=== PATIENT | male | born 1955 | race Caucasian/White ===

== ENCOUNTER 2019-05-08 07:35 | Day surgery (SDC) | payer OTHER ==
[~2019-05-08] VITALS: Ht 180.3 cm; Wt 74.8 kg
[~2019-05-08 07:35] MED LIST: ALEV220T22 PO; CELE1CAP4 OR; NS 1,000 ML IV ONE; No Historical Meds; ONDA-1 OR; PERC5TAB8 OR
[2019-05-08] MEDS ORDERED: PROPOFOL 200 MG/20 ML VIAL As Ordered ONE ×2 (09:03→10:02)
[2019-05-08] MEDS ORDERED: LIDOCAINE 2% INJ 100 MG/5 ML SDV (FOR ANES.) As Ordered ONE (09:04)
--- NOTE | 2019-05-08 10:06 | ROOR ---
Patient Name: Papa Henry Procedure Date: 05/08/2019 9:49 AM Date of : 1955 Age: 63 Room: [facility] Gender: Male Note Status: Finalized Procedure: Colonoscopy Indications: Screening for colorectal malignant neoplasm Providers: Roger Hall Jr, MD Referring MD: Adolfo Brunson MD Requesting Provider: Medicines: Propofol per Anesthesia Complications: No immediate complications. Procedure: Pre-Anesthesia Assessment: - Prior to the procedure, a History and Physical was performed, and patient medications and allergies were reviewed. The patient is competent. The risks and benefits of the procedure and the sedation options and risks were discussed with the patient. All questions were answered and informed consent was obtained. Patient identification and proposed procedure were verified by the physician and the nurse in the pre-procedure area and in the procedure room. Mental Status Examination: alert and oriented. Airway Examination: normal oropharyngeal airway and neck mobility. Respiratory Examination: clear to auscultation. CV Examination: normal. ASA Grade Assessment: II - A patient with mild systemic disease. After reviewing the risks and benefits, the patient was deemed in satisfactory condition to undergo the procedure. The anesthesia plan was to use moderate sedation / analgesia (conscious sedation). Immediately prior to administration of medications, the patient was re-assessed for adequacy to receive sedatives. The heart rate, respiratory rate, oxygen saturations, blood pressure, adequacy of pulmonary ventilation, and response to care were monitored throughout the procedure. The physical status of the patient was re-assessed after the procedure. The Colonoscope was introduced through the anus and advanced to the cecum, identified by appendiceal orifice and ileocecal valve. The colonoscopy was performed without difficulty. The patient tolerated the procedure well. The quality of the bowel preparation was adequate. Findings: The rectum, recto-sigmoid colon, sigmoid colon, descending colon, transverse colon, cecum, appendiceal orifice and ileocecal valve appeared normal. There was a small lipoma, in the ascending colon. Impression: - The rectum, recto-sigmoid colon, sigmoid colon, descending colon, transverse colon, cecum, appendiceal orifice and ileocecal valve are normal. - Small lipoma in the ascending colon. - No specimens collected. Recommendation: - Discharge patient to home (ambulatory). - Repeat colonoscopy in 10 years for screening purposes. Roger Hall MD Roger Hall Jr, MD 05/08/2019 10:06:26 AM Electronically signed by Roger Hall Jr, MD Number of Addenda: 0 Note Initiated On: 05/08/2019 9:49 AM Estimated Blood Loss: Estimated blood loss: none.
[2019-05-08 10:30] VITALS: BP 118/75
== END 2019-05-08 11:01 | disposition home or self-care (01) ==
LOC: M OPP 07:35
PROVIDERS: ATTEND Surgery
DX: Z12.11 Encounter for screening for malignant neoplasm of colon (principal); D17.5 Benign lipomatous neoplasm of intra-abdominal organs; M19.90 Unspecified osteoarthritis, unspecified site; Z80.52 Family history of malignant neoplasm of bladder

== ENCOUNTER 2020-10-15 08:00 | Inpatient (IN) | payer MEDICARE, OTHER ==
[~2020-10-15] VITALS: Ht 180.3 cm; Wt 98.2 kg
[~2020-10-15 08:00] MED LIST changes: -NS 1,000 ML IV ONE
[2020-10-15] MEDS ORDERED: NS 1,000 ML IV ONE (08:45)
[2020-10-15] MEDS ORDERED: KETOROLAC 30 MG/ML 1ML VIAL IV ONE (08:45)
--- OUTSIDE RECORDS SUMMARY | 2020-10-15 08:47 | CCD ---
Author Author [facility] Organization [facility] Address Unknown Phone Unavailable Care Team Providers Care Last Ironer Name Role Phone Chance Brunson MD Unavailable Unavailable Chance Brunson MD Unavailable Unavailable Chance Brunson MD Unavailable Unavailable Chance Brunson MD Unavailable Unavailable Chance Brunson MD Unavailable Unavailable Chance Brunson MD Unavailable Unavailable Chance Brunson MD Unavailable Unavailable Chance Brunson MD Unavailable Unavailable Chance Brunson MD Unavailable Unavailable Chance Brunson MD Unavailable Unavailable Chance Brunson MD Unavailable Unavailable Chance Brunson MD Unavailable Unavailable Chance Brunson MD Unavailable Unavailable Chance Brunson MD Unavailable Unavailable Chance Brunson MD Unavailable Unavailable Chance Brunson MD Unavailable Unavailable Chance Brunson MD Unavailable Unavailable Chance Brunson MD Unavailable Unavailable Chance Brunson MD Unavailable Unavailable Chance Brunson MD Unavailable Unavailable Chance Brunson MD Unavailable Unavailable Chance Brunson MD Unavailable Unavailable Chance Brunson MD Unavailable Unavailable Chance Brunson MD Unavailable Unavailable Chance Brunson MD Unavailable Unavailable Chance Brunson MD Unavailable Unavailable Chance Brunson MD Unavailable Unavailable Chance Brunson MD Unavailable Unavailable Chance Brunson MD Unavailable Unavailable Chance Brunson MD Unavailable Unavailable Chance Brunson MD Unavailable Unavailable Chance Brunson MD Unavailable Unavailable Chance Brunson MD Unavailable Unavailable Chance Brunson MD Unavailable Unavailable Chance Brunson MD Unavailable Unavailable Chance Brunson MD Unavailable Unavailable Chance Brunson MD Unavailable Unavailable Chance Brunson MD Unavailable Unavailable Chance Brunson MD Unavailable Unavailable Chance Brunson MD Unavailable Unavailable White, F Adolfo MD Unavailable Unavailable White, F Adolfo MD Unavailable Unavailable White, F Adolfo MD Unavailable Unavailable White, F Adolfo MD Unavailable Unavailable White, F Adolfo MD Unavailable Unavailable White, F Adolfo MD Unavailable Unavailable White, F Adolfo MD Unavailable Unavailable White, F Adolfo MD Unavailable Unavailable White, F Adolfo MD Unavailable Unavailable White, F Adolfo MD Unavailable Unavailable White, F Adolfo MD Unavailable Unavailable White, F Adolfo MD Unavailable Unavailable White, F Adolfo MD Unavailable Unavailable White, F Adolfo MD Unavailable Unavailable White, F Adolfo MD Unavailable Unavailable White, F Adolfo MD Unavailable Unavailable White, F Adolfo MD Unavailable Unavailable White, F Adolfo MD Unavailable Unavailable White, F Adolfo MD Unavailable Unavailable White, F Adolfo MD Unavailable Unavailable White, F Adolfo MD Unavailable Unavailable White, F Adolfo MD Unavailable Unavailable White, F Adolfo MD Unavailable Unavailable White, F Adolfo MD Unavailable Unavailable White, F Adolfo MD Unavailable Unavailable White, F Adolfo MD Unavailable Unavailable White, F Adolfo MD Unavailable Unavailable White, F Adolfo MD Unavailable Unavailable White, F Adolfo MD Unavailable Unavailable White, F Adolfo MD Unavailable Unavailable White, F Adolfo MD Unavailable Unavailable White, F Adolfo MD Unavailable Unavailable White, F Adolfo MD Unavailable Unavailable White, F Adolfo MD Unavailable Unavailable Re-disclosure Warning The records that you are about to access may contain information from federally-assisted alcohol or drug abuse programs. If such information is present, then the following federally mandated warning applies: This information has been disclosed to you from records protected by federal confidentiality rules (42 CFR part 2). The federal rules prohibit you from making any further disclosure of this information unless further disclosure is expressly permitted by the written consent of the person to whom it pertains or as otherwise permitted by 42 CFR part 2. A general authorization for the release of medical or other information is NOT sufficient for this purpose. The Federal rules restrict any use of the information to criminally investigate or prosecute any alcohol or drug abuse patient.The records that you are about to access may contain highly sensitive health information, the redisclosure of which is protected by Article 27-F of the [facility] Public Health law. If you continue you may have access to information: Regarding HIV / AIDS; Provided by facilities licensed or operated by the [facility] Office of Mental Health; or Provided by the [facility] Office for People With Developmental Disabilities. If such information is present, then the following [facility] mandated warning applies: This information has been disclosed to you from confidential records which are protected by state law. State law prohibits you from making any further disclosure of this information without the specific written consent of the person to whom it pertains, or as otherwise permitted by law. Any unauthorized further disclosure in violation of state law may result in a fine or mcfp sentence or both. A general authorization for the release of medical or other information is NOT sufficient authorization for further disc losure. Encounters Encounter Providers Location Date Indications Data Source(s ) Outpatient Attender: Adolfo Roa 03/25 08:30:00 AM EDT [facility] ([facility] ) Insurance Providers Payer name Policy type / Coverage type Policy ID Covered democrat ID Covered democrat's relationship to chan Policy Chan Plan Information MEDICARE COMPLETE [id number] SP [id number] [facility] [id number] SP [id number] [facility] [id number] SP [id number] [place] PPO 302/[id number] [facility] Healthcare F [id number] SELF [id number] [facility] Healthcare F [id number] SPOUSE [id number] [facility] Health Maintenance Organization (HMO) [id number] Family Dependent [id number] [facility] PPO [id number] Patient [id number] P PPO [id number] Patient [id number] P HMO [id number] Patient [id number] 401 O BLUE [id number] Patient [id number] [facility] [id number] Patient [id number] Results ID Date Data Source [id number] 03/25/2020 08:14:00 AM EDT [facility] ([facility]) Name Value Range Interpretation Code Description Data Cat rce(s) Supporting Document(s) Prostate specific Ag [Mass/volume] in Serum or Plasma 0.91 ng/mL [facility] ([facility]) This assay was performed on the Siemens Dimension EXL using the B- Galactosidase/CPRG methodology and should not be compared interchangeably with other methods. The PSA should not be used alone as a screening test for the presence or absence of malignant disease. ID Date Data Source [id number] 03/25/2020 08:14:00 AM EDT [facility] Name Value Range Interpretation Code Description Data Cat rce(s) Supporting Document(s) Thyrotropin [Units/volume] in Serum or Plasma by Detec tion limit <= 0.05 mIU/L 1.33 uIU/mL 0.36-3.74 [facility] ID Date Data Source [id number] 03/25/2020 08:14:00 AM EDT [facility]) Name Value Range Interpretation Code Description Data Cat rce(s) Supporting Document(s) Cholesterol [Mass/volume] in Serum or Plasma 195 mg/dL 131-200 [facility] ([facility]) Triglyceride [Mass/volume] in Serum or Plasma 79 mg/dL 30-150 [facility] ([facility]) Cholesterol in HDL [Mass/volume] in Serum or Plasma 52 mg/dL 35-60 [facility] ([facility]) Cholesterol in LDL [Mass/volume] in Serum or Plasma by calcu lation 127 CALC 50-159 [facility] ([facility]) ID Date Data Source [id number] 03/25/2020 08:14:00 AM EDT [facility] Name Value Range Interpretation Code Description Data Cat rce(s) Supporting Document(s) Urea nitrogen [Mass/volume] in Serum or Plasma 14 mg/dL 7-18 [facility] ([facility]) Creatinine 1.1 mg/dL 0.6-1.3 [facility]) Glucose [Mass/volume] in Serum or Plasma 97 mg/dL 74-99 [facility] ([facility]) 100-125 mg/dL PRE-DIABETES/FASTING >126 mg/dL DIABETES/FASTING Sodium [Moles/volume] in Serum or Plasma 141 meq/L 136-145 [facility] ([facility]) Potassium [Moles/volume] in Serum or Plasma 4.6 meq/L 3.5-5.1 [facility] ([facility]) Chloride [Moles/volume] in Serum or Plasma 104 meq/L 98-107 [facility] ([facility]) Calcium [Mass/volume] in Serum or Plasma 8.8 mg/dL 8.5-10.1 [facility] ([facility]) Carbon dioxide, total [Moles/volume] in Serum or Plasma 28 meq/L 21 -32 [facility] ([facility]) Alkaline phosphatase isoenzyme [Units/volume] in Serum or Pl asma 61 mg/dL 46-116 [facility] ([facility]) Total Bilirubin 0.9 mg/dL 0.2-1.0 [facility] ([facility]) Alanine aminotransferase [Enzymatic activity/volume] in Seru m or Plasma 34 U/L 12-78 [facility] ([facility]) Aspartate aminotransferase [Enzymatic activity/volume] in Serum or Plasma 21 U/L 15-37 [facility] ([facility] ) Proteinase 3 Ab [Units/volume] in Serum 7.1 g/dL 6.4-8.2 [facility] ([facility]) A/G Ratio 1.63 CALC 1.00-1.90 [facility] ([facility]) Albumin [Mass/volume] in Serum or Plasma 4.4 g/dL 3.4-5.0 [facility] ([facility]) Glomerular filtration rate/1.73 sq M pre dicted among blacks [Volume Rate/Area] in Serum or Plasma by Creatinine-based formula (MDRD) Laboratory test result [facility] <content>CHRONIC KIDNEY DISEASE STAGING PER NKF</content>
<content></content>
<content>STAGE I & II GFR >= 60 NORMAL TO MILDLY DECREASED</content>
<content>STAGE III GFR 30-59 MODERATELY DECREASED</content>
<content>STAGE IV GFR 15-29 SEVERELY DECREASED</content>
<content>STAGE V GFR <15 VERY LITTLE GFR LEFT</content>
<content>ESRD GFR <15 ON STATE PATROL OFFICER</content>
<content></content> Glomerular filtration rate/1.73 sq M pre dicted among non-blacks [Volume Rate/Area] in Serum or Plasma by Creatinine-based formula (MDRD) Laboratory test result [facility] ([facility] ) Procedure Vital Signs ID Date Data Source UNK Name Value Range Interpretation Code Description Data Source(s) Body mass index (BMI) [Ratio] 23.5 kg/m2 23.5 k g/m2 [facility] ([facility]) Body weight 166.00 [lb_av] 166.00 [lb_av] STEPHAN Colung[facility] ([facility]) Body height 70.5 [in_i] 70.5 [in_i] [facility] ([facility]) 5'10.50" Heart rate 78 /min 78 /min [facility] ([facility]) Diastolic blood pressure 82 mm[Hg] 82 mm[Hg] [facility] ([facility]) Systolic blood pressure 130 mm[Hg] 130 mm[Hg] M MITCHELL ([facility])
[2020-10-15 09:05] LABS: BASO % 0.3 % (0.0-1.0); EOS % 0.1 % (0.0-3.0); HEMATOCRIT 48.5 % (42.0-52.0); HEMOGLOBIN 15.9 g/dl (13.5-17.5); LYMPH # 0.7 10^3/uL (1.5-5.0); LYMPH % 4.5 % (24.0-44.0); MEAN CORPUSCULAR HEMOGLOBIN 30.3 pg (27.0-33.0); MEAN CORPUSCULAR HGB CONC 32.8 g/dl (32.0-36.5); MEAN CORPUSCULAR VOLUME 92.6 fl (80.0-96.0); MONO # 0.9 10^3/uL (0.0-0.8); MONO % 6.1 % (0.0-5.0); NEUTROPHILS # 13.2 10^3/uL (1.5-8.5); NEUTROPHILS % 88.5 % (36.0-66.0); PLATELET COUNT, AUTOMATED 255 10^3/uL (150-450); RED BLOOD COUNT 5.24 10^6/uL (4.30-6.10); WHITE BLOOD COUNT 14.9 10^3/uL (4.0-10.0)
[2020-10-15] MEDS ORDERED: ISOVUE-370 76% 100ML VIAL As Ordered ONE (09:22)
[2020-10-15 09:40] LABS: BILIRUBIN,DIRECT 0.3 MG/DL (0.0-0.2); BILIRUBIN,TOTAL 1.5 MG/DL (0.2-1.0); TOTAL PROTEIN 7.1 GM/DL (6.4-8.2)
--- NOTE | 2020-10-15 09:43 | REP ---
INDICATION: constipation, n/v COMPARISON: None. TECHNIQUE: Upright view of the chest with supine and upright views of the abdomen and pelvis. FINDINGS: Frontal upright view of the chest demonstrates no acute cardiopulmonary process or free air below the diaphragm to suspect pneumoperitoneum. Supine and upright views of the abdomen and pelvis demonstrate nonspecific bowel gas pattern without obstruction or perforation. No organomegaly. No abnormal calcifications. Skeletal structures normal for age. IMPRESSION: Nonspecific bowel gas pattern. <Electronically signed by Yogi Victoria > 10/15/20 0963
--- NOTE | 2020-10-15 09:50 | REP ---
INDICATION: umbilical pain into RLQ, constipation, n/v. COMPARISON: None TECHNIQUE: Axial contrast-enhanced images from the lung bases to the pubic symphysis using 100 cc Isovue 370 intravenous contrast material. Coronal and sagittal reformations obtained.. This CT examination was performed using the following dose reduction techniques: Automated exposure control, adjustment of mA and/or kv according to the patient's size, and the use of iterative reconstruction technique. FINDINGS: Liver, spleen, pancreas, gallbladder, bilateral adrenal glands and kidneys are normal. Dilated fluid-filled loops of small bowel are identified with collapsed small bowel noted in the right lower quadrant. Findings are compatible with early small-bowel obstruction. Point of transition is not definitively identified. No free air or free fluid to suggest perforation. Large bowel is grossly unremarkable. Pelvis demonstrates heterogeneous lobulated enlarged prostate gland measuring greater than 6.5 cm diameter. No significant ascites. No free air. No intraperitoneal or retroperitoneal adenopathy. Abdominal aorta and vasculature appear normal. Musculoskeletal structures are intact and without acute osseous abnormality. IMPRESSION: Dilated fluid-filled loops of small bowel with collapsed loops in the right lower quadrant compatible with small bowel obstruction. Point of transition is not definitively identified. No free air or significant free fluid to suggest perforation. No drainable collection or abscess. Enlarged lobulated heterogeneous prostate gland with mass effect on the base of the bladder. <Electronically signed by Yogi Victoria > 10/15/20 0914
[2020-10-15] MEDS ORDERED: PIPERACILLIN/TAZOBACTAM SOD 3.375 GM in D5W MINI-BAG PLUS 50 ML IV ONE (10:15)
--- OUTSIDE RECORDS SUMMARY | 2020-10-15 11:08 | CCD ---
Author Author [facility] Organization [facility] Address Unknown Phone Unavailable Care Team Providers Care Accounts Payable Payroll Coordinator Name Role Phone Chance Brunson MD Unavailable [...] is protected by Article 27-F of the [facility] Public Health law. If you continue you may have access to information: Regarding HIV / AIDS; Provided by facilities licensed or operated by the [facility] Office of Mental Health; or Provided by the [facility] Office for People With Developmental Disabilities. If such information is present, then the following [facility] mandated warning applies: This information has [...] law may result in a fine or half-way sentence or both. A general authorization for the release of medical or other information is NOT sufficient authorization for further disc losure. Encounters Encounter Providers Location Date Indications Data Source(s ) Outpatient Attender: Adolfo Roa 03/25 08:30:00 AM EDT [facility] ([facility] ) Insurance Providers Payer name Policy type / Coverage type Policy ID Covered constitution party ID Covered constitution party's relationship to chan Policy Chan Plan Information MEDICARE COMPLETE [id number] SP [id number] MEDICARE COMPLETE [id number] SP [id number] [facility] [id number] SP [id number] [facility] [id number] SP [id number] BCBS [place] PPO 302/[id number] [facility] Healthcare F [id number] SELF [id number] [facility] Healthcare F [id number] SPOUSE 8 [id number] [facility] Health Maintenance Organization (HMO) [id number] Family Dependent [id number] P PPO [id number] Patient [id number] MVP PPO [id number] Patient [id number] P HMO [id number] Patient [id number] 401 HMO BLUE [id number] Patient [id number] [facility] [id number] Patient [id number] Results ID Date Data Source [id number] 03/25/2020 08:14:00 AM EDT [facility] ([facility]) Name Value Range Interpretation Code Description Data Cat rce(s) Supporting Document(s) Prostate specific Ag [Mass/volume] in Serum or Plasma 0.91 ng/mL [facility] ([facility]) This assay was performed on the Siemens [employer] EXL using the B- Galactosidase/CPRG methodology and should not be compared interchangeably with other methods. The PSA should not be used alone as a screening test for the presence or absence of malignant disease. ID Date Data Source [id number] 03/25/2020 08:14:00 AM EDT [facility] Name Value Range Interpretation Code Description Data Cat rce(s) Supporting Document(s) Thyrotropin [Units/volume] in Serum or Plasma by Detec tion limit <= 0.05 mIU/L 1.33 uIU/mL 0.36-3.74 [facility] ID Date Data Source [id number] 03/25/2020 08:14:00 AM EDT [facility] Name Value Range Interpretation Code Description Data Cat rce(s) Supporting Document(s) Cholesterol [Mass/volume] in Serum or Plasma 195 mg/dL 131-200 [facility] ([facility]) Triglyceride [Mass/volume] in Serum or Plasma 79 mg/dL 30-150 [facility] ([facility]) Cholesterol in HDL [Mass/volume] in Serum or Plasma 52 mg/dL 35-60 [facility] ([facility]) Cholesterol in LDL [Mass/volume] in Serum or Plasma by calcu lation 127 CALC 50-159 [facility] ID Date Data Source [id number] 03/25/2020 08:14:00 AM EDT [facility] Name Value Range Interpretation Code Description Data Cat rce(s) Supporting Document(s) Urea nitrogen [Mass/volume] in Serum or Plasma 14 mg/dL 7-18 [facility] ([facility]) Creatinine 1.1 mg/dL 0.6-1.3 [facility] Glucose [Mass/volume] in Serum or Plasma 97 mg/dL 74-99 [facility] ([facility]) 100-125 mg/dL PRE-DIABETES/FASTING >126 mg/dL DIABETES/FASTING Sodium [Moles/volume] in Serum or Plasma 141 meq/L 136-145 [facility] ([facility]) Potassium [Moles/volume] in Serum or Plasma 4.6 meq/L 3.5-5.1 [facility] ([facility]) Chloride [Moles/volume] in Serum or Plasma 104 meq/L 98-107 [facility] ([facility]) Calcium [Mass/volume] in Serum or Plasma 8.8 mg/dL 8.5-10.1 [facility] ([facility]) Carbon dioxide, total [Moles/volume] in Serum or Plasma 28 meq/L 21 -32 [facility] ([facility]) Alkaline phosphatase isoenzyme [Units/volume] in Serum or Pl asma 61 mg/dL 46-116 [facility] ([facility]) Total Bilirubin 0.9 mg/dL 0.2-1.0 [facility] ([facility]) Alanine aminotransferase [Enzymatic activity/volume] in Seru m or Plasma 34 U/L 12-78 [facility] ([facility]) Aspartate aminotransferase [Enzymatic activity/volume] in Serum or Plasma 21 U/L 15-37 [facility] ([facility] ) Proteinase 3 Ab [Units/volume] in Serum 7.1 g/dL 6.4-8.2 [facility] ([facility]) A/G Ratio 1.63 CALC 1.00-1.90 [facility]) Albumin [Mass/volume] in Serum or Plasma 4.4 g/dL 3.4-5.0 [facility] ([facility]) Glomerular filtration rate/1.73 sq M pre dicted among blacks [Volume Rate/Area] in Serum or Plasma by Creatinine-based formula (MDRD) Laboratory [facility] <content>CHRONIC KIDNEY DISEASE STAGING PER NKF</content>
<content></content>
<content>STAGE I & II GFR >= 60 NORMAL TO MILDLY DECREASED</content>
<content>STAGE III GFR 30-59 MODERATELY DECREASED</content>
<content>STAGE IV GFR 15-29 SEVERELY DECREASED</content>
<content>STAGE V GFR <15 VERY LITTLE GFR LEFT</content>
<content>ESRD GFR <15 ON COOLING TOWER TECHNICIAN</content>
<content></content> Glomerular filtration rate/1.73 sq M pre dicted among non-blacks [Volume Rate/Area] in Serum or Plasma by Creatinine-based formula (MDRD) Laboratory test result [facility] ([facility] ) Procedure Vital Signs ID Date Data Source UNK Name Value Range Interpretation Code Description Data Source(s) Body mass index (BMI) [Ratio] 23.5 kg/m2 23.5 k g/m2 [facility] ([facility]) Body weight 166.00 [lb_av] 166.00 [lb_av] STEPHAN Colunga ([facility]) Body height 70.5 [in_i] 70.5 [in_i] [facility] ([facility]) 5'10.50" Heart rate 78 /min 78 /min [facility] ([facility]) Diastolic blood pressure 82 mm[Hg] 82 mm[Hg] [facility] ([facility]) Systolic blood pressure 130 mm[Hg] 130 mm[Hg] M MITCHELL ([facility])
[2020-10-15] MEDS: NS 1,000 ML IV SCH ×2 (11:30→20:49)
--- NOTE | 2020-10-15 13:36 | HPEPDOC ---
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 Denies chest pain, shortness of breath, diarrhea, or sick contacts. PAST MEDICAL HISTORY: Denies PAST SURGICAL HISTORY: #abdominal surgery 2017 - perforated bowel secondary to trauma - surgery at [facility] in [place] #appendagitis? ALLERGIES: Please see below. REVIEW OF SYSTEMS: Negative except as per HPI. HOME MEDICATIONS: Please see below. PHYSICAL EXAMINATION: VITAL SIGNS: See below General; NAD, lying comfortably in bed HEENT: NC/AT, EOMI, Lungs: CTA B/L Heart: +S1S2, RRR Abd: soft, hyperactive BS, tender Ext: no edema LABORATORY DATA: See below. MICROBIOLOGY: Please see below. A/P: 65 yo male for 2 day history of worsening abdominal pain with nausea and non-bilious non-bloody vomiting, found to have small bowel obstruction. #SBO - follow as per surgery - NG tube, sips, IV antibiotics, IV fluids - consultation pending #possible EtOH abuse? - monitor for withdrawal signs/symptoms #DVT prophylaxis - mechanical Vital Signs Vital Signs Date Time Temp Pulse Resp B/P (MAP) Pulse Ox O2 Delivery O2 Flow Rate FiO2 10/15/20 12:24 98.0 82 20 125/79 (94) 97 Room Air Laboratory Data Labs 24H Laboratory Tests 2 10/15/20 08:38: Immature Granulocyte % (Auto) 0.5, Neutrophils (%) (Auto) 88.5H, Lymphocytes (%) (Auto) 4.5L, Monocytes (%) (Auto) 6.1H, Eosinophils (%) (Auto) 0.1, Basophils (%) (Auto) 0.3, Neutrophils # (Auto) 13.2H, Lymphocytes # (Auto) 0.7L, Monocytes # (Auto) 0.9H, Eosinophils # (Auto) 0.0, Basophils # (Auto) 0.0, Nucleated Red Blood Cells % (auto) 0.0, Urine Color EDER, Urine Appearance CLEAR, Urine pH 5.0, Urine Specific [place] 1.031, Urine Protein 1+H, Urine Glucose (UA) NEGATIVE, Urine Ketones 1+H, Urine Blood NEGATIVE, Urine Nitrite NEGATIVE, Urine Bilirubin NEGATIVE, Urine Urobilinogen 4.0H, Urine Leukocyte Esterase NEGATIVE, Urine WBC (Auto) 1, Urine RBC (Auto) 2, Urine Hyaline Casts (Auto) 0, Urine Bacteria (Auto) NEGATIVE, Urine Squamous Epithelial Cells 0, Urine Mucus (Auto) SMALL, Urine Sperm (Auto) , POC Glucose (Misc Panel) 118H, POC Sodium (Misc Panel) 138, POC Potassium (Misc Panel) 4.6, POC Chloride (Misc Panel) 102, POC Total CO2 (Misc Panel) 25.0, POC Blood Urea Nitrogen (Misc Panel 24, POC Ionized Calcium (Misc Panel) 4.9, POC Creatinine (Misc Panel) 0.9, POC Hematocrit (Misc Panel) 47.0, Total Bilirubin 1.5H, Direct Bilirubin 0.3H, Aspartate Amino Transf (AST/SGOT) 12, Alanine Aminotransferase (ALT/SGPT) 27, Alkaline Phosphatase 69, Total Protein 7.1, Albumin 4.0, Albumin/Globulin Ratio 1.3, Lipase 47L 10/15/20 08:43: POC Lactate (Misc Panel) 1.12 10/15/20 09:50: Coronavirus (COVID-19)(PCR) NEGATIVE CBC/BMP Laboratory Tests 10/15/20 08:38 Home Medications No Active Prescriptions or Reported Meds Allergies Coded Allergies: No Known Allergies (Unverified , 04/30/19) A-FIB/CHADSVASC A-FIB History Current/History of A-Fib/PAF?: No VAMSI VITAL MD Oct 15, 2020 13:36
[2020-10-15 15:43] VITALS: BP 137/95
[2020-10-15] MEDS: PIPERACILLIN/TAZOBACTAM SOD 3.375 GM in D5W MINI-BAG PLUS 50 ML IV SCH ×2 (16:57→21:18)
[2020-10-15] MEDS ORDERED: MORPHINE 2 MG/ML 1ML VIAL (J2270) IV PRN ×2 (17:15→21:15)
[2020-10-15] MEDS ORDERED: CHLORASEPTIC SPRAY MT PRN (17:15)
--- NOTE | 2020-10-15 21:09 | CR ---
CONSULTATION DATE: 10/15/2020 REASON FOR CONSULTATION: Abdominal pain. HISTORY OF PRESENT ILLNESS: Patient is a 65-year-old male, who presented to the hospital with a couple day history of increasing abdominal pain. Pain was mostly around his belly button going to his right lower quadrant. He did have a little bit of nausea and vomiting yesterday, nothing significant since. Last bowel movement was last evening. Due to persistent pains, he had his pick him up out in [place] this morning and bring him up here to be evaluated. He has had a perforated bowel surgery four years ago, status post trauma. No problems with bowel obstruction since then. PAST MEDICAL HISTORY: Negative. PAST SURGICAL HISTORY: Abdominal exploratory surgery with bowel resection in 2017. ALLERGIES: None. HOME MEDICATIONS: Please see medical record. REVIEW OF SYSTEMS: Pertinent positive and negatives as stated in HPI. PHYSICAL EXAMINATION: GENERAL: Alert and oriented x3, in no acute distress. VITALS: Temperature 98.2, pulse 80, respirations 18, blood pressure 137/95, pulse oximetry 99% on room air. HEENT: Pupils equally round and reactive to light and accommodation. HEART: S1, S2, regular rate and rhythm. LUNGS: Clear to auscultation bilaterally. ABDOMEN: Soft, slightly distended, slight tenderness suprapubically in the right lower quadrant only. No rebound or guarding or rigidity. EXTREMITIES: No cyanosis, clubbing or edema. LABORATORY DATA: White count 14.9, hemoglobin 15.9, platelets 255,000. Bilirubin was slightly elevated at 1.5. COVID negative. Lactic acid 1.12. Sodium 138, potassium 4.6. IMAGING STUDIES: CT abdomen and pelvis showed dilated loops of small bowel with collapsed loops in the right lower quadrant, compatible with small bowel obstruction, point of transition is not identified. No signs of any free air or free fluid to suggest a perforation. ASSESSMENT AND PLAN: Patient is a 65-year-old male with abdominal pain, distention on CT, suspicious for partial versus complete small bowel obstruction. This is likely secondary to adhesions from his prior surgery. Recommendation at this time is bowel rest, I.V. fluids, antibiotics and frequent ambulation. Will give him 72-hours of medical management. If there is no improvement by Sunday, then I will take him to the Operating Room for exploratory surgery. BOBO
[2020-10-15] MEDS ORDERED: ONDANSETRON 4MG/2ML VIAL IV PRN (21:15)
[2020-10-15 22:00] VITALS: BP 116/86
[2020-10-16] MEDS: PIPERACILLIN/TAZOBACTAM SOD 3.375 GM in D5W MINI-BAG PLUS 50 ML IV SCH ×4 (04:25→21:54)
[2020-10-16 06:00] VITALS: BP 129/73
[2020-10-16 06:50] LABS: HEMATOCRIT 39.1 % (42.0-52.0); MEAN CORPUSCULAR HEMOGLOBIN 29.5 pg (27.0-33.0); MEAN CORPUSCULAR HGB CONC 31.2 g/dl (32.0-36.5); MEAN CORPUSCULAR VOLUME 94.4 fl (80.0-96.0); PLATELET COUNT, AUTOMATED 177 10^3/uL (150-450); RED BLOOD COUNT 4.14 10^6/uL (4.30-6.10); WHITE BLOOD COUNT 9.7 10^3/uL (4.0-10.0)
[2020-10-16 06:57] LABS: HEMOGLOBIN 12.2 g/dl (13.5-17.5)
[2020-10-16 07:08] LABS: ALBUMIN 2.9 GM/DL (3.2-5.2); ALT/SGPT 17 U/L (12-78); BILIRUBIN,TOTAL 1.3 MG/DL (0.2-1.0); BLOOD UREA NITROGEN 22 MG/DL (7-18); CALCIUM LEVEL 8.1 MG/DL (8.8-10.2); CARBON DIOXIDE LEVEL 23 MEQ/L (21-32); CHLORIDE LEVEL 110 MEQ/L (98-107); CREATININE FOR GFR 0.87 MG/DL (0.70-1.30); GLOMERULAR FILTRATION RATE > 60.0 (>49); GLUCOSE, FASTING 82 MG/DL (70-100); POTASSIUM SERUM 3.9 MEQ/L (3.5-5.1); SODIUM LEVEL 141 MEQ/L (136-145); TOTAL PROTEIN 5.5 GM/DL (6.4-8.2)
[2020-10-16] MEDS: NS 1,000 ML IV SCH ×2 (07:50→17:41)
--- NOTE | 2020-10-16 09:41 | IPNPDOC ---
Text Note Date of Service The patient was seen on 10/16/20. NOTE No acute changes overnight. He is passing flatus, but no BM yet. Abd pain is g one and his NG output is minimal but still brown. VSSAF NAD abd - soft, nt, nd labs - below A) 65y/o male with sbo vs. ileus that is resolving P) clamp NG clear liquid diet ambulate if tolerating clamped NG by 5pm we will d/c it. Patrick Gonsalez DO VS,Fishbone, I+O VS, Fishbone, I+O Laboratory Tests 10/16/20 05:44 Vital Signs Date Time Temp Pulse Resp B/P (MAP) Pulse Ox O2 Delivery O2 Flow Rate FiO2 10/16/20 06:00 98.3 83 18 129/73 (91) 97 Room Air I&O- Last 24 Hours up to 6 AM 10/16/20 06:00 Intake Total 2850 ml Output Total 625 ml Balance 2225 ml ESPERANZA GONSALEZ DO Oct 16, 2020 09:41
--- NOTE | 2020-10-16 11:28 | IPNPDOC ---
Text Note Date of Service The patient was seen on 10/16/20. NOTE Subjective: Patient seen and examined at bedside. No acute overnight events reported. No new medical complaints this morning. He states he is feeling better. Objective: VITAL SIGNS: See below General; NAD, lying comfortably in bed HEENT: NC/AT, EOMI, Lungs: CTA B/L Heart: +S1S2, RRR Abd: soft, hyperactive BS, NT Ext: no edema A/P: 65 yo male for 2 day history of worsening abdominal pain with nausea and non-bilious non-bloody vomiting, found to have small bowel obstruction. #SBO - follow as per surgery - clamp NG tube, ambulate, clear liquid diet #possible EtOH abuse? - monitor for withdrawal signs/symptoms #DVT prophylaxis - mechanical VS,Fishbone, I+O VS, Fishbone, I+O Laboratory Tests 10/16/20 05:44 Vital Signs Date Time Temp Pulse Resp B/P (MAP) Pulse Ox O2 Delivery O2 Flow Rate FiO2 10/16/20 06:00 98.3 83 18 129/73 (91) 97 Room Air I&O- Last 24 Hours up to 6 AM 10/16/20 06:00 Intake Total 2850 ml Output Total 625 ml Balance 2225 ml VAMSI VITAL MD Oct 16, 2020 11:28
[2020-10-16 14:00] VITALS: BP 127/76
[2020-10-16 22:00] VITALS: BP 125/76
[2020-10-17] MEDS: NS 1,000 ML IV SCH (03:34)
[2020-10-17] MEDS: PIPERACILLIN/TAZOBACTAM SOD 3.375 GM in D5W MINI-BAG PLUS 50 ML IV SCH ×2 (03:34→10:49)
[2020-10-17 06:00] VITALS: BP 117/72
--- NOTE | 2020-10-17 08:15 | IPNPDOC ---
Text Note Date of Service The patient was seen on 10/17/20. NOTE No acute changes overnight. He is passing flatus, and multiple BMs yesterday. NG is out and he tolerated clears. VSSAF NAD abd - soft, nt, nd labs - below A) 65y/o male with sbo vs. ileus that resolved P) reg diet d/c home f/u in office PRN Patrick Gonsalez DO VS,Fishbone, I+O VS, Fishbone, I+O Vital Signs Date Time Temp Pulse Resp B/P (MAP) Pulse Ox O2 Delivery O2 Flow Rate FiO2 10/16/20 22:00 97.9 74 16 125/76 (92) 98 Room Air I&O- Last 24 Hours up to 6 AM 10/17/20 06:00 Intake Total 3670 ml Output Total 575 ml Balance 3095 ml ESPERANZA GONSALEZ DO Oct 17, 2020 08:15
[2020-10-17 08:21] LABS: BASO % 0.5 % (0.0-1.0); EOS # 0.1 10^3/uL (0.0-0.5); HEMATOCRIT 33.2 % (42.0-52.0); HEMOGLOBIN 10.6 g/dl (13.5-17.5); LYMPH # 0.7 10^3/uL (1.5-5.0); LYMPH % 13.4 % (24.0-44.0); MEAN CORPUSCULAR HEMOGLOBIN 30.4 pg (27.0-33.0); MEAN CORPUSCULAR HGB CONC 31.9 g/dl (32.0-36.5); MEAN CORPUSCULAR VOLUME 95.1 fl (80.0-96.0); MONO # 0.7 10^3/uL (0.0-0.8); MONO % 12.3 % (0.0-5.0); NEUTROPHILS # 3.9 10^3/uL (1.5-8.5); NEUTROPHILS % 71.3 % (36.0-66.0); PLATELET COUNT, AUTOMATED 150 10^3/uL (150-450); RED BLOOD COUNT 3.49 10^6/uL (4.30-6.10); WHITE BLOOD COUNT 5.5 10^3/uL (4.0-10.0)
[2020-10-17 09:09] LABS: ALBUMIN 2.7 GM/DL (3.2-5.2); ALT/SGPT 16 U/L (12-78); BILIRUBIN,TOTAL 0.6 MG/DL (0.2-1.0); BLOOD UREA NITROGEN 11 MG/DL (7-18); CALCIUM LEVEL 7.9 MG/DL (8.8-10.2); CARBON DIOXIDE LEVEL 25 MEQ/L (21-32); CHLORIDE LEVEL 110 MEQ/L (98-107); CREATININE FOR GFR 0.87 MG/DL (0.70-1.30); GLOMERULAR FILTRATION RATE > 60.0 (>49); GLUCOSE, FASTING 113 MG/DL (70-100); POTASSIUM SERUM 4.1 MEQ/L (3.5-5.1); SODIUM LEVEL 142 MEQ/L (136-145); TOTAL PROTEIN 5.2 GM/DL (6.4-8.2)
--- NOTE | 2020-10-17 13:32 | DS.PDOC ---
Discharge Summary General Date of Admission Oct 15, 2020 at 10:46 Date of Discharge 10/17/20 Discharge Summary PROCEDURES PERFORMED DURING STAY: [None]. ADMITTING DIAGNOSES: #partial SBO DISCHARGE DIAGNOSES: #partial SBO COMPLICATIONS/CHIEF COMPLAINT: Small Bowel Obstruction. 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 Denies chest pain, shortness of breath, diarrhea, or sick contacts. Patient admitted for further evaluation and treatment seen in consultation by surgery. NG tube was placed while in the ED, and made NPO. He was advanced to clear liquid diet, and his pain continued to improve. His diet was advanced from clears. He tolerated his diet well. He had a bowel movement while inpatient. He was seen in follow-up by surgery with recommendations for outpatient follow-up. DISCHARGE MEDICATIONS: Please see below. ALLERGIES: Please see below. PHYSICAL EXAMINATION ON DISCHARGE: VITAL SIGNS: See below General; NAD, lying comfortably in bed HEENT: NC/AT, EOMI, Lungs: CTA B/L Heart: +S1S2, RRR Abd: soft, hyperactive BS, tender Ext: no edema LABORATORY DATA: See below. LABORATORY DATA: Please see below. ACTIVITY: [As tolerated]. DISPOSITION: 01 Home, Self-Care. DISCHARGE INSTRUCTIONS: 1. Follow up with PCP in 3-5 days DISCHARGE CONDITION: [Stable]. TIME SPENT ON DISCHARGE: 35 minutes. Vital Signs/I&Os Vital Signs Date Time Temp Pulse Resp B/P (MAP) Pulse Ox O2 Delivery O2 Flow Rate FiO2 10/17/20 06:00 97.4 60 16 117/72 (87) 98 Room Air I&O- Last 24 Hours up to 6 AM 10/17/20 06:00 Intake Total 3830 ml Output Total 575 ml Balance 3255 ml Laboratory Data Labs 24H Laboratory Tests 2 10/17/20 07:59: Immature Granulocyte % (Auto) 0.5, Neutrophils (%) (Auto) 71.3H, Lymphocytes (%) (Auto) 13.4L, Monocytes (%) (Auto) 12.3H, Eosinophils (%) (Auto) 2.0, Basophils (%) (Auto) 0.5, Neutrophils # (Auto) 3.9, Lymphocytes # (Auto) 0.7L, Monocytes # (Auto) 0.7, Eosinophils # (Auto) 0.1, Basophils # (Auto) 0.0, Nucleated Red Blood Cells % (auto) 0.0, Anion Gap 7L, Glomerular Filtration Rate > 60.0, Calcium Level 7.9L, Total Bilirubin 0.6#, Aspartate Amino Transf (AST/SGOT) 7, Alanine Aminotransferase (ALT/SGPT) 16, Alkaline Phosphatase 48, Total Protein 5.2L, Albumin 2.7L, Albumin/Globulin Ratio 1.1 CBC/BMP Laboratory Tests 10/17/20 07:59 Microbiology Microbiology 10/15/20 Blood Culture - Preliminary, Resulted No growth after 24 hours . All specim... 10/15/20 Blood Culture - Preliminary, Resulted No growth after 24 hours . All specim... Discharge Medications No Active Prescriptions or Reported Meds Allergies Coded Allergies: No Known Allergies (Unverified , 04/30/19) VAMSI VITAL MD Oct 17, 2020 13:32
== END 2020-10-17 12:07 | disposition home or self-care (01) | DRG 390 ==
LOC: M ED 08:00 → M ED INP 10:46 → M MSPAV 15:44
PROVIDERS: ADMIT Internal Medicine; ATTEND Internal Medicine
DX: K56.50 Intestinal adhesions [bands], unspecified as to partial versus complete obstruction (principal)

== ENCOUNTER 2021-03-27 11:01 | Inpatient (IN) | payer MEDICARE ==
[~2021-03-27] VITALS: Ht 180.3 cm; Wt 79.8 kg
[2021-03-27 11:54] LABS: BASO % 0.2 % (0.0-1.0); HEMOGLOBIN 15.5 g/dl (13.5-17.5); MEAN CORPUSCULAR HEMOGLOBIN 30.6 pg (27.0-33.0); MEAN CORPUSCULAR VOLUME 92.9 fl (80.0-96.0); MONO # 0.9 10^3/uL (0.0-0.8); MONO % 4.6 % (2.0-8.0); NEUTROPHILS # 17.6 10^3/uL (1.5-8.5); NEUTROPHILS % 89.8 % (36.0-66.0); PLATELET COUNT, AUTOMATED 250 10^3/uL (150-450); RED BLOOD COUNT 5.06 10^6/uL (4.30-6.10); WHITE BLOOD COUNT 19.6 10^3/uL (4.0-10.0)
[2021-03-27] MEDS ORDERED: ONDANSETRON 4MG/2ML VIAL IV ONE ×2 (12:00→13:45)
[2021-03-27] MEDS ORDERED: MORPHINE 4 MG/ML 1ML VIAL/SYRINGE (J2270) IV ONE (12:00)
[2021-03-27] MEDS ORDERED: ISOVUE-370 76% 100ML VIAL As Ordered ONE (12:03)
[2021-03-27 12:22] LABS: BILIRUBIN,DIRECT 0.2 MG/DL (0.0-0.2); BILIRUBIN,TOTAL 0.6 MG/DL (0.2-1.0); TOTAL PROTEIN 7.1 GM/DL (6.4-8.2)
--- NOTE | 2021-03-27 13:02 | REP ---
INDICATION: SBO. COMPARISON: 10/15/2020 TECHNIQUE: 100 mL Isovue 370 with scanning through the abdomen and pelvis and both coronal and sagittal reconstructions provided. FINDINGS: CT abdomen: Lung bases are clear. The heart is not enlarged and there is no pericardial thickening or effusion. No hiatal hernia seen. Liver is not enlarged and appears homogeneous. There is a small amount of ascites adjacent to the liver. No biliary dilatation or focal hepatic mass gallbladder shows no calcified stone or mass. There is no gross splenomegaly. Trace amount of ascites adjacent to the inferior aspect of the spleen. Pancreas shows no calcification. The pancreatic duct up to a 3 mm in the body of the pancreas but no pancreatic mass, peripancreatic inflammatory change fluid collection. No adenopathy. Adrenal glands are normal. Stomach with retained fluid. Proximal small bowel loops dilated in the left upper quadrant. The most proximal loops of jejunum do show wall thickening. Some ascites in the leaves of the mesentery and extending in the peritoneal gutters to the pelvis. Small bowel loops dilated in the left upper quadrant with transition of caliber in the right side of the abdomen at the level of the iliac crest on images 94-98. Small bowel loops distal to this are fluid-filled but not dilated but with wall thickening and enhancement. Colon has abundant stool in the right side moderate on the transverse and scattered in the left colon. No definite sign of colitis or diverticulitis, mass or stricture. The aorta is without aneurysm or dissection. Kidneys show symmetric function in enhancement without struck gutierrez, mass or stone. There is no hydroureter or ureteral stone. No periaortic, mesenteric or retroperitoneal pathologic sized lymphadenopathy. Lung window review of all CT slices shows no perforation or free air. Appendix is seen and unremarkable. Bone windows show degenerative disc changes greatest at L4-5 with vacuum phenomenon and disc space narrowing, minimal changes at other levels. No compression deformity or destructive lesion. The visualized ribs were intact. CT pelvis: Bony sacrum, pelvis and hips show minimal degenerative changes without destructive lesions or fractures. The distal left colon, sigmoid and rectum with no acute finding. Moderate ascites into the deep pelvis. Small bowel loops in the pelvis are fluid-filled but not abnormally dilated. Some of the small bowel loops in the right abdomen past the transition zone show thickening and enhancement of the mendez. Bladder is only partially filled without mass, stone or wall thickening enlarged prostate indents the bladder base. There is no ventral hernia. Some ascites is seen extending into the left inguinal canal. IMPRESSION: 1. Dilated proximal to mid small bowel with transition zone appearing in the right mid abdomen at the level of the iliac crest, see images 94-98. This represents mild small-bowel obstruction. Beyond this, the small bowel loops have slightly thickened mendez and enhancement of those mendez. Those loops are all fluid-filled but not dilated to the ileocecal valve. The proximal loops show dilatation without air-fluid levels. The most proximal of loops of jejunum do show wall thickening. Mild to moderate ascites in the upper and lower abdomen pelvis respectively. 2. No definite evidence for colitis, diverticulitis stricture or colonic mass. 3. Liver, spleen, gallbladder, pancreas, adrenal glands, kidneys and bladder unremarkable. No hiatal hernia. Otherwise negative. <Electronically signed by Maurisio Crawford > 03/27/21 [id number]
[2021-03-27] MEDS ORDERED: NS 1,000 ML IV SCH (13:05)
[2021-03-27] MEDS ORDERED: GLUCAGON INJ 1MG VIAL SC PRN (13:25)
[2021-03-27] MEDS ORDERED: DEXTROSE 50% 50 ML SYRINGE IV PRN (13:25)
[2021-03-27] MEDS ORDERED: GLUCOSE 4GM CHEW TABLET PO PRN (13:25)
--- NOTE | 2021-03-27 13:58 | HPEPDOC ---
[facility] Medical History & Physical Date of Admission Mar 27, 2021 Date of Service: Mar 27, 2021 Attending Physician: LUIS CHISHOLM MD MPH History and Physical CHIEF COMPLAINT: SBO HISTORY OF PRESENT ILLNESS: Mr. Henry is a 65 year old male with PMHx significant only for abdominal trauma several years ago requiring ex-lap with no reported resection and a small bowel obstruction in who presents to the ED with one day of progressive abdominal discomfort and large amount of emesis this morning. Patient states he was in his normal state of health up until yesterday afternoon when he developed a slight stomach ache. He was able to tolerate a diet last night, however this morning when he woke up, he had an episode of emesis where he brought up all of his food from the night before. He otherwise has no medical complaints. ED Course: NGT placed to LIWS with small amount of bile return. PAST MEDICAL HISTORY: SBO Abdominal trauma with exlap PAST SURGICAL HISTORY: T&A as child Exlap orthopedic surgeries SOCIAL HISTORY: Marital status: and lives at home with Employment: construction Tobacco use: denies ETOH: beer most weekends FAMILY HISTORY: non contributory ALLERGIES: Please see below. REVIEW OF SYSTEMS: Other than noted above a 12 point ROS was not positive. HOME MEDICATIONS: Please see below. PHYSICAL EXAMINATION: VITAL SIGNS: reviewed GENERAL APPEARANCE: Uncomfortable thin older male with NGT in place, no acute distress. HEENT: Atraumatic, normocephalic. Eyes are anicteric. Mucous membranes are pink and moist. NGT in left nare. CARDIOVASCULAR: NSR, regular rhythm, no noted murmurs LUNGS: CTAB ABDOMEN: Hypoactive bowel sounds, soft, nondistended. Slight discomfort throughout upper abdomen with no rebound or guarding. EXTREMITIES: No lower extremity edema, no apparent rashes/petechiae. NEUROLOGICAL: Awake, speech is clear, AOx3 LABORATORY DATA: See below. IMAGING: CT Abd/Pelvis: IMPRESSION: 1. Dilated proximal to mid small bowel with transition zone appearing in the right mid abdomen at the level of the iliac crest, see images 94-98. This represents mild small-bowel obstruction. Beyond this, the small bowel loops have slightly thickened mendez and enhancement of those mendez. Those loops are all fluid-filled but not dilated to the ileocecal valve. The proximal loops show dilatation without air- fluid levels. The most proximal of loops of jejunum do show wall thickening. Mild to moderate ascites in the upper and lower abdomen pelvis respectively. 2. No definite evidence for colitis, diverticulitis stricture or colonic mass. 3. Liver, spleen, gallbladder, pancreas, adrenal glands, kidneys and bladder unremarkable. No hiatal hernia. Otherwise negative. MICROBIOLOGY: Please see below. ASSESSMENT: Mr. Henry is a 65 year old male with pmhx of abdominal trauma s/p exlap and SBO last in presenting with clinical and radiological findings c/w SBO. Gen Surg has been consulted. . PLAN: # SBO: Will continue NGT to LIWS with NPO status. Encouraging patient to ambulate to improve gastric motility. General Surgery is consulted, however no acute indication for surgical intervention at this time. Meds: Toradol for pain Zofran PRN Nausea 150cc/hr D5NS while NPO NPO with sips/chips okay NGT to LIWS Encourage ambulation Appreciate Gen Surg consult # Leukocytosis: This is a new issue, however there is no current evidence of infection as lung exam is unremarkable, UA is negative, and there is no finding on CT A/P to support an abdominal source for infection. Will continue to monitor, however likely demargination in the setting of SBO. Dispo: Med/Surg Obs Diet: NPO, sips/chips DVT Prophy: Lovenox Consults: Gen surg Discharge: Pending resolution of SBO, currently anticipate <2 MN. Vital Signs Vital Signs Date Time Temp Pulse Resp B/P (MAP) Pulse Ox O2 Delivery O2 Flow Rate FiO2 03/27/21 12:03 18 Room Air 03/27/21 11:30 03/27/21 11:02 98.9 86 97 Laboratory Data Labs 24H Laboratory Tests 2 03/27/21 11:30: Immature Granulocyte % (Auto) 0.4, Neutrophils (%) (Auto) 89.8H, Lymphocytes (%) (Auto) 5.0L, Monocytes (%) (Auto) 4.6, Eosinophils (%) (Auto) 0.0, Basophils (%) (Auto) 0.2, Neutrophils # (Auto) 17.6H, Lymphocytes # (Auto) 1.0L, Monocytes # (Auto) 0.9H, Eosinophils # (Auto) 0.0, Basophils # (Auto) 0.0, Nucleated Red Blood Cells % (auto) 0.0, Total Bilirubin 0.6, Direct Bilirubin 0.2, Aspartate Amino Transf (AST/SGOT) 18, Alanine Aminotransferase (ALT/SGPT) 37, Alkaline Phosphatase 61, Total Protein 7.1, Albumin 4.0, Albumin/Globulin Ratio 1.3, Lipase 44L 03/27/21 11:43: POC Glucose (Misc Panel) 155H, POC Sodium (Misc Panel) 141, POC Potassium (Misc Panel) 4.2, POC Chloride (Misc Panel) 102, POC Total CO2 (Misc Panel) 27.0, POC Blood Urea Nitrogen (Misc Panel 16, POC Ionized Calcium (Misc Panel) 4.7, POC Creatinine (Misc Panel) 1.0, POC Hematocrit (Misc Panel) 47.0 03/27/21 11:55: Urine Color YELLOW, Urine Appearance CLEAR, Urine pH 6.0, Urine Specific [place] 1.027, Urine Protein 1+H, Urine Glucose (UA) NEGATIVE, Urine Ketones NEGATIVE, Urine Blood NEGATIVE, Urine Nitrite NEGATIVE, Urine Bilirubin NEGATIVE, Urine Urobilinogen 0.2, Urine Leukocyte Esterase NEGATIVE, Urine WBC (Auto) 1, Urine RBC (Auto) 2, Urine Hyaline Casts (Auto) 1, Urine Bacteria (Auto) NEGATIVE, Urine Squamous Epithelial Cells 0, Urine Mucus (Auto) SMALL, Urine Sperm (Auto) CBC/BMP Laboratory Tests 03/27/21 11:30 Home Medications No Active Prescriptions or Reported Meds Allergies Coded Allergies: No Known Allergies (Unverified , 04/30/19) A-FIB/CHADSVASC A-FIB History Current/History of A-Fib/PAF?: No Current PO Anticoag Therapy: No Age/Risk Factor Scoring CHADSVASC: CHADSVASC Response (Comments) Value Age Risk Factor Age 65-74 years old 1 Gender Risk Factor Male 0 Hx of CHF No 0 Hx of HTN No 0 Hx of Stroke/TIA/or VTE No 0 Hx of Diabetes No 0 Hx of Vascular Disease No 0 Total 1 Treatment Treatment ordered: Other Other anticoagulant ordered: LUIS Pltat MD MPH Mar 27, 2021 13:58
[2021-03-27] MEDS ORDERED: HOME MED LIST COMPLETE! XX SCH (14:00)
[2021-03-27 14:30] LABS: RSV AMPLIFICATION NEGATIVE (NEGATIVE)
[2021-03-27] MEDS: D5W/0.9% SODIUM CHLORIDE 1,000 ML IV SCH ×2 (14:48→22:21)
[2021-03-27] MEDS: HumaLOG INSULIN (NovoLOG) PER UNIT SC SCH ×2 (15:03→17:36)
[2021-03-27 15:50] VITALS: BP 164/98
[2021-03-27] MEDS: KETOROLAC 30 MG/ML 1ML VIAL IV PRN ×2 (16:06→22:19)
[2021-03-27] MEDS: ONDANSETRON 4MG/2ML VIAL IV PRN ×2 (16:06→22:19)
[2021-03-27] MEDS: MORPHINE 2 MG/ML 1ML VIAL (J2270) IV PRN (19:38)
[2021-03-27 22:00] VITALS: BP 151/87
--- NOTE | 2021-03-27 22:14 | ECGEPIP ---
[facility] - ED Test Date: 2021-03-27 Pat Name: APRIL RODRIGUES Department: Room: [place] [address] Gender: Male Radiosonde Specialist: VIDAL : 1955 Requested By: Abbe Kolb Order Number: [id number] Reading MD: Sue Lopez Measurements Intervals [place] Rate: 66 P: 40 KS: 168 QRS: 11 QRSD: 100 T: 16 QT: 400 QTc: 419 Interpretive Statements Normal sinus rhythm No prior Electronically Signed on 03-27-2021 22:14:26 EDT by Sue Lopez
[2021-03-28] MEDS: MORPHINE 2 MG/ML 1ML VIAL (J2270) IV PRN ×3 (00:14→22:41)
[2021-03-28] MEDS: HumaLOG INSULIN (NovoLOG) PER UNIT SC SCH ×4 (00:14→17:42)
--- NOTE | 2021-03-28 01:55 | REPVR ---
PROCEDURE INFORMATION: Exam: XR Chest Exam date and time: 03/28/2021 12:57 AM Age: 65 years old Clinical indication: Device placement; Ng tube; Additional info: Confirm ngt placement TECHNIQUE: Imaging protocol: XR of the chest. Views: 1 view. COMPARISON: CR Abdomen,Flat Upright,PA CHEST 10/15/2020 8:56 AM FINDINGS: Tubes, catheters and devices: Interval placement of an NG tube to the gastric body. Lungs: There is decreased inflation of the lungs. Pleural spaces: Unremarkable. No pleural effusion. No pneumothorax. Heart/Mediastinum: The heart and mediastinum are unchanged. Bones/joints: Unremarkable. IMPRESSION: 1. Interval placement of an NG tube to the gastric body since 10/15/2020. 2. Otherwise stable poor inspiratory chest. Electronically signed by: Don Torres On 03/28/2021 01:54:26 AM
[2021-03-28 06:00] VITALS: BP 140/81
[2021-03-28] MEDS: D5W/0.9% SODIUM CHLORIDE 1,000 ML IV SCH ×3 (06:02→22:39)
[2021-03-28] MEDS: KETOROLAC 30 MG/ML 1ML VIAL IV PRN ×2 (06:03→12:14)
[2021-03-28 06:26] LABS: HEMATOCRIT 48.2 % (42.0-52.0); HEMOGLOBIN 15.9 g/dl (13.5-17.5); MEAN CORPUSCULAR HEMOGLOBIN 30.6 pg (27.0-33.0); MEAN CORPUSCULAR VOLUME 92.9 fl (80.0-96.0); PLATELET COUNT, AUTOMATED 259 10^3/uL (150-450); RED BLOOD COUNT 5.19 10^6/uL (4.30-6.10); WHITE BLOOD COUNT 7.2 10^3/uL (4.0-10.0)
[2021-03-28 06:52] LABS: BLOOD UREA NITROGEN 22 MG/DL (7-18); CALCIUM LEVEL 8.4 MG/DL (8.8-10.2); CARBON DIOXIDE LEVEL 24 MEQ/L (21-32); CHLORIDE LEVEL 110 MEQ/L (98-107); CREATININE FOR GFR 0.91 MG/DL (0.70-1.30); GLOMERULAR FILTRATION RATE > 60.0 (>49); GLUCOSE, FASTING 139 MG/DL (70-100); MAGNESIUM LEVEL 2.3 MG/DL (1.8-2.4); POTASSIUM SERUM 4.6 MEQ/L (3.5-5.1); SODIUM LEVEL 142 MEQ/L (136-145)
--- NOTE | 2021-03-28 07:43 | IPNPDOC ---
Text Note Date of Service The patient was seen on 03/28/21. NOTE SUBJECTIVE: Patient has had additional output from NGT as well as large amount of emesis last night after NGT was retracted slightly. It was repositioned and had good return of stomach contents. Today pain and nausea are resolved. Patient denies flatus. He is interested in ambulating. PHYSICAL EXAMINATION: VITAL SIGNS: reviewed GENERAL APPEARANCE: Thin older male sitting up in bed with NGT in place, no acute distress. HEENT: Atraumatic, normocephalic. Eyes are anicteric. Mucous membranes are pink and moist. NGT in left nare to LIWS with return of bilious fluid. CARDIOVASCULAR: NSR, regular rhythm, no noted murmurs LUNGS: CTAB ABDOMEN: Hypoactive bowel sounds, soft, nondistended. No rebound tenderness or guarding. EXTREMITIES: No lower extremity edema, no apparent rashes/petechiae. NEUROLOGICAL: Awake, speech is clear, AOx3 LABORATORY DATA: See below. IMAGING: No recent MICROBIOLOGY: Please see below. ASSESSMENT: Mr. Henry is a 65 year old male with pmhx of abdominal trauma s/p exlap and SBO last in presenting with clinical and radiological findings c/w SBO. Gen Surg has been consulted. . PLAN: # SBO: Will continue NGT to LIWS with NPO status. Encouraging patient to ambulate to improve gastric motility. General Surgery is consulted, however no acute indication for surgical intervention at this time. Meds: Toradol for pain Zofran PRN Nausea 150cc/hr D5NS while NPO NPO with sips/chips okay NGT to LIWS Encourage ambulation Appreciate Gen Surg consult # Leukocytosis: This is resolved on AM labs, no fevers appreciated overnight. Will continue to monitor patient, however was likely d/t demargination in setting of SBO. Dispo: Med/Surg inpatient Diet: NPO, sips/chips DVT Prophy: Lovenox Consults: Gen surg Discharge: Pending resolution of SBO will transition to inpatient VS,Fishbone, I+O VS, Fishbone, I+O Laboratory Tests 03/27/21 11:30 03/28/21 05:32 Vital Signs Date Time Temp Pulse Resp B/P (MAP) Pulse Ox O2 Delivery O2 Flow Rate FiO2 03/28/21 06:00 98.2 87 18 140/81 (100) 99 Room Air I&O- Last 24 Hours up to 6 AM 03/28/21 06:00 Intake Total 1170 ml Output Total 1150 ml Balance 20 ml LUIS CHISHOLM MD [facility] Mar 28, 2021 07:43
[2021-03-28] MEDS: ENOXAPARIN 40MG/0.4ML SYRINGE (J1650 PER 10MG) SC SCH (09:18)
[2021-03-28] MEDS: ONDANSETRON 4MG/2ML VIAL IV PRN ×3 (12:13→20:34)
[2021-03-28 14:00] VITALS: BP 108/66
[2021-03-28 22:00] VITALS: BP 164/88
[2021-03-29] MEDS: KETOROLAC 30 MG/ML 1ML VIAL IV PRN ×3 (00:01→15:45)
[2021-03-29] MEDS: HumaLOG INSULIN (NovoLOG) PER UNIT SC SCH ×4 (00:08→18:00)
[2021-03-29] MEDS: MORPHINE 2 MG/ML 1ML VIAL (J2270) IV PRN ×3 (05:11→21:09)
[2021-03-29 06:00] VITALS: BP 141/89
[2021-03-29] MEDS: D5W/0.9% SODIUM CHLORIDE 1,000 ML IV SCH ×3 (06:27→21:25)
[2021-03-29 07:12] LABS: HEMATOCRIT 41.9 % (42.0-52.0); MEAN CORPUSCULAR HEMOGLOBIN 30.7 pg (27.0-33.0); MEAN CORPUSCULAR VOLUME 96.1 fl (80.0-96.0); PLATELET COUNT, AUTOMATED 190 10^3/uL (150-450); RED BLOOD COUNT 4.36 10^6/uL (4.30-6.10); WHITE BLOOD COUNT 6.7 10^3/uL (4.0-10.0)
[2021-03-29 07:20] LABS: HEMOGLOBIN 13.4 g/dl (13.5-17.5)
[2021-03-29 07:39] LABS: BLOOD UREA NITROGEN 20 MG/DL (7-18); CALCIUM LEVEL 8.4 MG/DL (8.8-10.2); CARBON DIOXIDE LEVEL 32 MEQ/L (21-32); CHLORIDE LEVEL 111 MEQ/L (98-107); CREATININE FOR GFR 0.95 MG/DL (0.70-1.30); GLOMERULAR FILTRATION RATE > 60.0 (>49); GLUCOSE, FASTING 122 MG/DL (70-100); MAGNESIUM LEVEL 2.5 MG/DL (1.8-2.4); POTASSIUM SERUM 4.6 MEQ/L (3.5-5.1); SODIUM LEVEL 146 MEQ/L (136-145)
[2021-03-29] MEDS: ONDANSETRON 4MG/2ML VIAL IV PRN ×4 (07:54→23:09)
[2021-03-29] MEDS: ENOXAPARIN 40MG/0.4ML SYRINGE (J1650 PER 10MG) SC SCH (07:55)
[2021-03-29 14:00] VITALS: BP 147/87
--- NOTE | 2021-03-29 16:47 | REP ---
INDICATION: resolving sbo?. COMPARISON: CT 03/27/2021, abdominal series 10/15/2020. TECHNIQUE: Supine and erect views of the abdomen, frontal view chest. FINDINGS: There is no free air. There are a few mild to moderately dilated small bowel loops are seen in the right lower quadrant and left upper quadrant, with air-fluid levels on the upright view. There is scattered fecal material throughout the colon. A nasogastric tube is seen with side port in the stomach. No infiltrate is seen in either lung. The heart and mediastinum are unremarkable. IMPRESSION: No free air. There are a few mild to moderately dilated small bowel loops in the right lower quadrant and left upper quadrant. A previously noted moderately dilated small bowel loop in the left upper quadrant on the senior mechanical project manager image of the CT scan 03/27/2021 appears to have decreased in caliber. <Electronically signed by Tru Enamorado > 03/29/21 [id number]
--- NOTE | 2021-03-29 18:16 | IPNPDOC ---
Date Seen The patient was seen on 03/29/21. Progress Note SUBJECTIVE: Patient reports ongoing abdominal discomfort but denies any current nausea, overall improved from yesterday. NGT in place draining bilious drainage. Afebrile overnight without any acute events reported. No bowel movements reported. OBJECTIVE PHYSICAL EXAMINATION: VITAL SIGNS: reviewed GENERAL APPEARANCE: NGT in place, no acute distress. HEENT: Atraumatic, normocephalic. NGT in left nare to LIWS with return of bilious fluid. CARDIOVASCULAR: NSR, regular rhythm, no noted murmurs LUNGS: CTA b/l ABDOMEN: Hypoactive bowel sounds, soft, mild tenderness to epigastric and R. sided abdomen. No rebound tenderness or guarding. EXTREMITIES: No lower extremity edema, no apparent rashes/petechiae. NEUROLOGICAL: Awake, speech is clear, AOx3 LABORATORY DATA, IMAGING STUDIES, MICROBIOLOGY: Please see below. ASSESSMENT AND PLAN: 1. SBO - NGT ongoing, bilious drainage persistent. - C/w NPO with IVF in place. - Pain control. Surgery consulted for assistance. - Nausea resolved as of this morning. - Previous history of SBO last year, hx bowel surgery due to accident many years ago. DVT ppx: Lovenox DISPOSITION: Home once medically cleared. [facility] Vital Signs Date Time Temp Pulse Resp B/P (MAP) Pulse Ox O2 Delivery O2 Flow Rate FiO2 03/29/21 15:58 20 03/29/21 14:00 100.4 80 147/87 (107) 99 Room Air 03/28/21 22:51 3.0 I&O- Last 24 Hours up to 6 AM 03/29/21 06:00 Intake Total 1500 ml Output Total 2975 ml Balance -1475 ml Laboratory Data 24H LABS Laboratory Tests 2 03/29/21 00:03: Bedside Glucose (Misc Panel) 126H 03/29/21 05:52: Bedside Glucose (Misc Panel) 134H 03/29/21 07:00: Nucleated Red Blood Cells % (auto) 0.0, Anion Gap 3L, Glomerular Filtration Rate > 60.0, Calcium Level 8.4L, Magnesium Level 2.5H 03/29/21 11:36: Bedside Glucose (Misc Panel) 116H 03/29/21 17:02: Bedside Glucose (Misc Panel) 108 CBC/BMP Laboratory Tests 03/29/21 07:00 MANE WYNN MD Mar 29, 2021 18:16
[2021-03-29 22:00] VITALS: BP 148/88
--- NOTE | 2021-03-29 22:00 | CR ---
CONSULTATION DATE: 03/29/2021 REASON FOR CONSULTATION: Small-bowel obstruction. BRIEF HISTORY OF PRESENT ILLNESS: The patient is a 65-year-old gentleman who had an exploratory laparotomy and a questionable small-bowel resection for trauma approximately 4 years ago. He had been doing well until he developed a small-bowel obstruction one year ago and then presented again 3 days ago with evidence of abdominal distention, nausea, vomiting, and this was acute in onset. He had an NG tube and has had high NG tube output since his admission. PAST MEDICAL HISTORY: The patient's past medical history is significant for small-bowel obstruction. SURGICAL HISTORY: The patient's past surgical history is significant for: 1. History of tonsillectomy. 2. Exploratory laparotomy. 3. Orthopedic surgeries. MEDICATIONS: None. ALLERGIES: None. HOSPITAL COURSE: His vital signs have been stable although he had a little bit of a temperature bump today to 100.4. His white count has been stable and normal. He has not had any flatus or bowel movements. He does complain of some crampy abdominal pain at times. PHYSICAL EXAMINATION: HEENT: Unremarkable. NECK: Supple without adenopathy. LUNGS: Clear to auscultation. HEART: Regular. ABDOMEN: Softly distended, mostly on the right hand side he has some discomfort to deep palpation but really no guarding, no rebound, no peritoneal signs. The left side of his abdomen is quite soft and benign. He had some x-rays today that did show some air fluid levels but really not significantly dilated bowel and the comment on the report is that it is decreased in caliber. IMPRESSION AND PLAN: The patient has improving small-bowel obstruction. We will keep him n.p.o., IV fluids, NG tube to decompress and then I will see how he is doing in the morning and then reevaluate him at that time.
[2021-03-30] MEDS: KETOROLAC 30 MG/ML 1ML VIAL IV PRN ×3 (00:06→16:31)
[2021-03-30] MEDS: HumaLOG INSULIN (NovoLOG) PER UNIT SC SCH ×4 (00:16→18:00)
[2021-03-30] MEDS: D5W/0.9% SODIUM CHLORIDE 1,000 ML IV SCH ×3 (05:01→18:47)
[2021-03-30 06:00] VITALS: BP 148/88
[2021-03-30] MEDS: ONDANSETRON 4MG/2ML VIAL IV PRN (06:38)
[2021-03-30 06:47] LABS: HEMATOCRIT 37.3 % (42.0-52.0); MEAN CORPUSCULAR HEMOGLOBIN 31.4 pg (27.0-33.0); MEAN CORPUSCULAR HGB CONC 32.2 g/dl (32.0-36.5); MEAN CORPUSCULAR VOLUME 97.6 fl (80.0-96.0); PLATELET COUNT, AUTOMATED 177 10^3/uL (150-450); RED BLOOD COUNT 3.82 10^6/uL (4.30-6.10); WHITE BLOOD COUNT 6.3 10^3/uL (4.0-10.0)
[2021-03-30 07:05] LABS: BLOOD UREA NITROGEN 18 MG/DL (7-18); CALCIUM LEVEL 8.2 MG/DL (8.8-10.2); CARBON DIOXIDE LEVEL 31 MEQ/L (21-32); CHLORIDE LEVEL 113 MEQ/L (98-107); CREATININE FOR GFR 0.82 MG/DL (0.70-1.30); GLOMERULAR FILTRATION RATE > 60.0 (>49); GLUCOSE, FASTING 114 MG/DL (70-100); MAGNESIUM LEVEL 2.4 MG/DL (1.8-2.4); POTASSIUM SERUM 4.1 MEQ/L (3.5-5.1); SODIUM LEVEL 148 MEQ/L (136-145)
[2021-03-30] MEDS: MORPHINE 2 MG/ML 1ML VIAL (J2270) IV PRN (09:51)
--- NOTE | 2021-03-30 11:00 | IPN ---
PROGRESS NOTE DATE: 03/30/2021 SUBJECTIVE: The states that he feels about the same. He really has some intermittent crampy abdominal pain but it seems as though he is getting a little less frequent cramps and taking the pain medication a little less frequently. He has been afebrile. His white count is still stable. He has not had any flatus or bowel movements, although when I walked in the room it does seem as though his abdomen seems a little bit less distended than it was yesterday. OBJECTIVE: The left side of his abdomen is completely benign and scaphoid even, on the right side, however it is a little bit full, mildly uncomfortable to palpation without tenderness. IMPRESSION AND PLAN: Patient has evidence of small bowel obstruction. It is hard to tell if it is slowly getting better. The x-rays shows that the bowel is less distended on the x-rays yesterday compared to the original CT scan and thus implies that this is slowly getting better but it is very slowly with increments being not impressive at this time. In any case, I will get follow-up x-ray today but what I would like to do is I have instructed the patient if he does not have significant improvement by tomorrow/resolution/flatus, etc I would recommend proceeding with a diagnostic laparoscopy with possibly lysis of adhesions. He understands that is the plan at this time and will see what our next course of action is depending on his overall progress today.
--- NOTE | 2021-03-30 11:20 | REP ---
INDICATION: sbo ?resolving. COMPARISON: None. TECHNIQUE: Supine and erect views of the abdomen, frontal view chest. FINDINGS: There is no free air. A few [id number]-vy-[id number] dilated small bowel loops are again seen in the left upper quadrant and right lower quadrant. These are essentially unchanged except for the most superior loop in the left upper quadrant which appears to have decreased in caliber. A nasogastric tube is unchanged. Lungs remain clear. The heart and mediastinum are unchanged. IMPRESSION: A few mild to moderately dilated small bowel loops are again seen in the left upper quadrant and right lower quadrant, unchanged except for decreased caliber of the most superior loop in the left upper quadrant. <Electronically signed by Tru Enamorado > 03/30/21 2245
[2021-03-30 14:00] VITALS: BP 144/84
--- NOTE | 2021-03-30 18:41 | IPNPDOC ---
Date Seen The patient was seen on 03/30/21. Progress Note SUBJECTIVE: Patient appeared uncomfortable with several episodes of severe abdominal pain this AM. Still has notable drainage from NGT. No bowel movements and has yet to pass any gas. OBJECTIVE PHYSICAL EXAMINATION: VITAL SIGNS: reviewed GENERAL APPEARANCE: NGT in place, intermittent moderate distress. HEENT: Atraumatic, normocephalic. NGT in left nare to LIWS with return of bilious fluid. CARDIOVASCULAR: NSR, regular rhythm, no noted murmurs LUNGS: CTA b/l ABDOMEN: Hypoactive bowel sounds, soft, moderate tenderness to epigastric and R. sided abdomen. No rebound tenderness or guarding. EXTREMITIES: No lower extremity edema, no apparent rashes/petechiae. NEUROLOGICAL: Awake, speech is clear, AOx3 LABORATORY DATA, IMAGING STUDIES, MICROBIOLOGY: Please see below. ASSESSMENT AND PLAN: 1. SBO - hx partial bowel resection 2/2 injury and episode of SBO last year. Suspect may be due to adhesions. - NGT ongoing, bilious drainage persistent. - C/w NPO with IVF in place. - Pain control. Surgery following, - Patient reports potential for surgery if he doesn't improve when discussed with surgery. DVT ppx: Lovenox DISPOSITION: Home once medically cleared. VS, I&O, 24H, Fishbone Vital Signs/I&O Vital Signs Date Time Temp Pulse Resp B/P (MAP) Pulse Ox O2 Delivery O2 Flow Rate FiO2 03/30/21 14:00 99.1 64 16 144/84 (104) 99 Room Air 03/28/21 22:51 3.0 I&O- Last 24 Hours up to 6 AM 03/30/21 06:00 Intake Total 1125 ml Output Total 1950 ml Balance -825 ml Laboratory Data 24H LABS Laboratory Tests 2 03/29/21 21:16: Bedside Glucose (Misc Panel) 118H 03/29/21 23:46: Bedside Glucose (Misc Panel) 110 03/30/21 05:57: Nucleated Red Blood Cells % (auto) 0.0, Anion Gap 4L, Glomerular Filtration Rate > 60.0, Calcium Level 8.2L, Magnesium Level 2.4 03/30/21 06:33: Bedside Glucose (Misc Panel) 120H 03/30/21 11:29: Bedside Glucose (Misc Panel) 83 03/30/21 16:26: Bedside Glucose (Misc Panel) 93 CBC/BMP Laboratory Tests 03/30/21 05:57 MANE WYNN MD Mar 30, 2021 18:41
[2021-03-30 20:00] VITALS: BP 158/80
[2021-03-31] MEDS: HumaLOG INSULIN (NovoLOG) PER UNIT SC SCH ×4 (00:23→18:00)
[2021-03-31] MEDS: KETOROLAC 30 MG/ML 1ML VIAL IV PRN (00:23)
[2021-03-31] MEDS: D5W/0.9% SODIUM CHLORIDE 1,000 ML IV SCH ×3 (02:52→20:15)
[2021-03-31 06:00] VITALS: BP 150/89
[2021-03-31 07:16] LABS: HEMATOCRIT 36.8 % (42.0-52.0); HEMOGLOBIN 11.7 g/dl (13.5-17.5); MEAN CORPUSCULAR HGB CONC 31.8 g/dl (32.0-36.5); MEAN CORPUSCULAR VOLUME 97.6 fl (80.0-96.0); PLATELET COUNT, AUTOMATED 169 10^3/uL (150-450); RED BLOOD COUNT 3.77 10^6/uL (4.30-6.10); WHITE BLOOD COUNT 7.7 10^3/uL (4.0-10.0)
[2021-03-31 07:45] LABS: BLOOD UREA NITROGEN 20 MG/DL (7-18); CALCIUM LEVEL 8.1 MG/DL (8.8-10.2); CARBON DIOXIDE LEVEL 33 MEQ/L (21-32); CHLORIDE LEVEL 115 MEQ/L (98-107); CREATININE FOR GFR 0.78 MG/DL (0.70-1.30); GLOMERULAR FILTRATION RATE > 60.0 (>49); GLUCOSE, FASTING 105 MG/DL (70-100); MAGNESIUM LEVEL 2.4 MG/DL (1.8-2.4); POTASSIUM SERUM 4.3 MEQ/L (3.5-5.1); SODIUM LEVEL 152 MEQ/L (136-145)
[2021-03-31] MEDS ORDERED: propofoL 200 MG/20 ML VIAL As Ordered ONE (11:44)
[2021-03-31] MEDS ORDERED: ROCURONIUM BROMIDE 50 MG/5 ML VIAL As Ordered ONE ×2 (11:44→15:23)
[2021-03-31] MEDS ORDERED: MIDAZOLAM INJ 2MG/2ML VIAL (J2250 PER 1MG) As Ordered ONE (11:44)
[2021-03-31] MEDS ORDERED: fentaNYL 250 MCG/5 ML INJECTION (J3010) As Ordered ONE (11:44)
[2021-03-31] MEDS ORDERED: LIDOCAINE 2% 100MG/5ML SDV (FOR ANES.) As Ordered ONE (11:44)
[2021-03-31] MEDS ORDERED: BUPIVACAINE/EPIN 0.25% 30 ML VIAL As Ordered ONE (12:44)
[2021-03-31] MEDS ORDERED: ceFAZolin 2 GM/D5W 50 ML IV BAG (J0690 PER 500MG) As Ordered ONE (13:40)
[2021-03-31] MEDS ORDERED: SUCCINYLCHOLINE 100 MG/5 ML SYRINGE (J0330) As Ordered ONE (14:56)
[2021-03-31] MEDS ORDERED: ePHEDrine SULFATE 25 MG/5 ML(5MG/ML) SYRINGE As Ordered ONE (15:01)
[2021-03-31] MEDS ORDERED: ACETAMINOPHEN 1000MG 100ML IV BTL (OFIRMEV) (J0131 PER 10MG) As Ordered ONE (15:02)
[2021-03-31] MEDS ORDERED: KETOROLAC 60MG 2ML VIAL As Ordered ONE (15:04)
[2021-03-31] MEDS ORDERED: ONDANSETRON 4MG/2ML VIAL As Ordered ONE (15:04)
[2021-03-31] MEDS ORDERED: dexameTHASONE 4 MG/ML 1ML VIAL (J1100 PER 1MG) As Ordered ONE (15:04)
[2021-03-31] MEDS ORDERED: HYDROmorphone HCL 2 MG/ML 1ML VIAL (J1170) As Ordered ONE (15:06)
[2021-03-31] MEDS ORDERED: SUGAMMADEX SODIUM 500 MG/5 ML VIAL (BRIDION) As Ordered ONE (15:20)
[2021-03-31] MEDS ORDERED: BUPIVACAINE HCL 0.25% 10ML VIAL As Ordered ONE (16:02)
[2021-03-31] MEDS ORDERED: BUPIVACAINE LIPOSOME/PF 1.3% 20ML VIAL (13.3MG/ML)(EXPAREL)(C9290 PER1MG) As Ordered ONE (16:02)
[2021-03-31] MEDS ORDERED: ONDANSETRON 4MG/2ML VIAL IV PRN (17:35)
[2021-03-31] MEDS ORDERED: MEPERIDINE INJ 25 MG/ML VIAL (J2175) IV PRN (17:35)
[2021-03-31] MEDS ORDERED: LR 1,000 ML IV SCH (17:35)
[2021-03-31] MEDS ORDERED: HYDROMORPHONE HCL 0.5 MG/ 0.5 ML SYRINGE (J1170 PER 1) IV PRN (17:45)
[2021-03-31] MEDS ORDERED: fentaNYL 100 MCG/2 ML INJECTION (J3010) IV PRN (17:45)
[2021-03-31 18:00] VITALS: BP 141/88
[2021-03-31 18:25] VITALS: BP 144/83
[2021-03-31] MEDS: MORPHINE 2 MG/ML 1ML VIAL (J2270) IV PRN (18:30)
--- NOTE | 2021-03-31 18:38 | IPNPDOC ---
Text Note Date of Service The patient was seen on 03/31/21. NOTE SUBJECTIVE: Patient is pending OR for Js with Dr. Hall. He reports continued bloating and denies flatus. Continues to have NGT to LIWS and remains afebrile. PHYSICAL EXAMINATION: VITAL SIGNS: reviewed GENERAL APPEARANCE: Thin older male sitting up in bed with NGT in place, no acute distress. HEENT: Atraumatic, normocephalic. Eyes are anicteric. Mucous membranes are pink and moist. NGT in left nare to LIWS with return of bilious fluid. CARDIOVASCULAR: NSR, regular rhythm, no noted murmurs LUNGS: CTAB ABDOMEN: Hypoactive bowel sounds, soft, nondistended. No rebound tenderness or guarding. EXTREMITIES: No lower extremity edema, no apparent rashes/petechiae. NEUROLOGICAL: Awake, speech is clear, AOx3 LABORATORY DATA: See below. IMAGING: No recent MICROBIOLOGY: Please see below. ASSESSMENT: Mr. Henry is a 65 year old male with pmhx of abdominal trauma s/p exlap and SBO last in presenting with clinical and radiological findings c/w SBO. Gen Surg has been consulted. . PLAN: # SBO: Will continue NGT to LIWS with NPO status. Encouraging patient to ambulate to improve gastric motility. General Surgery is taking patient to OR today for Js as he has failed conservative management with NGT. Meds: Toradol for pain Morphine PRN breakthrough pain Zofran PRN Nausea 125cc/hr D5NS while NPO NPO with sips/chips okay NGT to LIWS Encourage ambulation Appreciate Gen Surg consult # Leukocytosis: This has not reoccurred since admission however patient did fever and has been on Zosyn since 03/29. Will continue perioperatively and consider discontinuing following advancing in diet and continued afebrile status. Zosyn 3.325mg Q6H daily CBC Dispo: Med/Surg inpatient Diet: NPO, sips/chips. Anticipate advancing diet post operatively per Gen Surg recommendations DVT Prophy: Lovenox Consults: Gen surg Discharge: Unclear, pending toleration of advanced diet and flatus post operatively VS,Fishbone, I+O VS, Fishbone, I+O Laboratory Tests 03/31/21 06:54 Vital Signs Date Time Temp Pulse Resp B/P (MAP) Pulse Ox O2 Delivery O2 Flow Rate FiO2 03/31/21 18:30 18 03/31/21 18:25 98.0 86 144/83 (103) 97 Room Air 03/31/21 16:47 10.0 I&O- Last 24 Hours up to 6 AM 03/31/21 06:00 Intake Total 2410 ml Output Total 2600 ml Balance -190 ml LUIS CHISHOLM MD [facility] Mar 31, 2021 18:38
[2021-03-31] MEDS: KETOROLAC 30 MG/ML 1ML VIAL IV SCH ×2 (20:03→21:39)
[2021-03-31] MEDS: PIPERACILLIN/TAZOBACTAM SOD 3.375 GM in D5W MINI-BAG PLUS 50 ML IV SCH (20:15)
[2021-03-31 22:30] VITALS: BP 133/84
[2021-04-01] VITALS (7 sets, daily range): BP systolic 115–132; BP diastolic 68–84
[2021-04-01] MEDS: PIPERACILLIN/TAZOBACTAM SOD 3.375 GM in D5W MINI-BAG PLUS 50 ML IV SCH ×4 (01:45→18:22)
[2021-04-01] MEDS: KETOROLAC 30 MG/ML 1ML VIAL IV SCH ×2 (04:02→10:32)
[2021-04-01] MEDS: D5W/0.9% SODIUM CHLORIDE 1,000 ML IV SCH ×3 (05:20→21:25)
[2021-04-01] MEDS: HumaLOG INSULIN (NovoLOG) PER UNIT SC SCH ×4 (06:52→17:25)
[2021-04-01 08:45] LABS: HEMATOCRIT 39.3 % (42.0-52.0); HEMOGLOBIN 12.7 g/dl (13.5-17.5); MEAN CORPUSCULAR HEMOGLOBIN 30.8 pg (27.0-33.0); MEAN CORPUSCULAR HGB CONC 32.3 g/dl (32.0-36.5); MEAN CORPUSCULAR VOLUME 95.4 fl (80.0-96.0); PLATELET COUNT, AUTOMATED 195 10^3/uL (150-450); RED BLOOD COUNT 4.12 10^6/uL (4.30-6.10); WHITE BLOOD COUNT 17.7 10^3/uL (4.0-10.0)
[2021-04-01 09:15] LABS: BLOOD UREA NITROGEN 19 MG/DL (7-18); CARBON DIOXIDE LEVEL 31 MEQ/L (21-32); CHLORIDE LEVEL 112 MEQ/L (98-107); CREATININE FOR GFR 0.99 MG/DL (0.70-1.30); GLOMERULAR FILTRATION RATE > 60.0 (>49); GLUCOSE, FASTING 105 MG/DL (70-100); MAGNESIUM LEVEL 2.2 MG/DL (1.8-2.4); POTASSIUM SERUM 3.9 MEQ/L (3.5-5.1); SODIUM LEVEL 150 MEQ/L (136-145)
[2021-04-01] MEDS: MORPHINE 2 MG/ML 1ML VIAL (J2270) IV PRN ×2 (15:51→22:21)
[2021-04-01] MEDS: ONDANSETRON 4MG/2ML VIAL IV PRN (16:06)
[2021-04-01] MEDS: NORCO, ANEXSIA 5/325MG TABLET (HYDROcodone/ACETAMINOPHEN) PO PRN ×2 (16:06→20:44)
[2021-04-01] MEDS ORDERED: FAT EMULSION IV 250 ML IV SCH (18:00)
--- NOTE | 2021-04-01 18:01 | IPNPDOC ---
Text Note Date of Service The patient was seen on 04/01/21. NOTE Hospitalist Progress Note Subjective: Patient is reclined in bed. His abdomen is still uncomfortable, but he is not in any acute distress at this time. It seems that he is somewhat discouraged by the fact that he is progressing so slowly. Otherwise, he does not voice any c omplaints at this time the remainder of his review of systems is negative. Objective: General: Awake, alert, oriented 3. Not in any acute distress. HEENT: Head normocephalic, atraumatic, sclera are nonicteric. Hearing is grossly intact to conversation. Respiratory: Clear to auscultation bilaterally with no wheezes, rales, or rhonchi. Cardiovascular: Regular rate and rhythm, with no rubs, gallops, or murmur. Abdomen: Soft, minimally tender, perhaps mildly distended. I cannot appreciate any bowel sounds at this time. Extremities: 2+ pulses in the radial and dorsalis pedis bilaterally. No evidence of clubbing or cyanosis. Assessment: Small bowel obstruction -Patient was taken to the OR yesterday for diagnostic laparoscopic procedure and possible lysis of adhesions -Continue with pain control using Toradol and morphine -Zofran as needed -He continues to be n.p.o., therefore D5 half-normal saline will be continued. -General surgery is on the case, and their input regarding management is greatly appreciated. Leukocytosis -Significant elevation of leukocytosis today. Continue Zosyn Hypernatremia -Improved from yesterday, but still high -Likely secondary to administration of IV fluids. This is anticipated to resolve on its own naturally as his small bowel obstruction resolves, and we are able wean him off of IV fluids. In order to mitigate this he has been switched between lactated Ringer's and D5/half-normal saline. VS,Fishbone, I+O VS, Fishbone, I+O Laboratory Tests 04/01/21 08:33 Vital Signs Date Time Temp Pulse Resp B/P (MAP) Pulse Ox O2 Delivery O2 Flow Rate FiO2 04/01/21 10:00 97.3 92 18 123/77 (92) 97 04/01/21 05:19 Room Air 03/31/21 16:47 10.0 I&O- Last 24 Hours up to 6 AM 04/01/21 06:00 Intake Total 2270 ml Output Total 1855 ml Balance 415 ml ESPERANZA SUMNER DO Apr 01, 2021 13:29
[2021-04-01] MEDS: AMINO AC/ELECTROLYTE/DEX/CALC 1,000 ML IV SCH (18:22)
[2021-04-01] MEDS: ALVIMOPAN 12 MG CAPSULE (ENTEREG) PO SCH (20:44)
[2021-04-02] MEDS ORDERED: KETOROLAC 30 MG/ML 1ML VIAL IV ONE (00:45)
[2021-04-02] MEDS: PIPERACILLIN/TAZOBACTAM SOD 3.375 GM in D5W MINI-BAG PLUS 50 ML IV SCH ×4 (00:59→18:37)
[2021-04-02] MEDS: HumaLOG INSULIN (NovoLOG) PER UNIT SC SCH ×4 (00:59→17:33)
[2021-04-02] MEDS: D5W/0.9% SODIUM CHLORIDE 1,000 ML IV SCH ×3 (01:00→21:41)
[2021-04-02 01:13] VITALS: BP 121/74
[2021-04-02] MEDS ORDERED: MORPHINE 4 MG/ML 1ML VIAL/SYRINGE (J2270) IV PRN (02:35)
[2021-04-02 06:00] VITALS: BP 128/75
[2021-04-02 06:50] LABS: HEMOGLOBIN 11.8 g/dl (13.5-17.5); MEAN CORPUSCULAR HEMOGLOBIN 30.6 pg (27.0-33.0); MEAN CORPUSCULAR HGB CONC 31.9 g/dl (32.0-36.5); MEAN CORPUSCULAR VOLUME 95.9 fl (80.0-96.0); PLATELET COUNT, AUTOMATED 167 10^3/uL (150-450); RED BLOOD COUNT 3.86 10^6/uL (4.30-6.10); WHITE BLOOD COUNT 11.3 10^3/uL (4.0-10.0)
[2021-04-02] MEDS: AMINO AC/ELECTROLYTE/DEX/CALC 1,000 ML IV SCH ×2 (06:51→20:52)
[2021-04-02 07:12] LABS: BLOOD UREA NITROGEN 22 MG/DL (7-18); CALCIUM LEVEL 7.4 MG/DL (8.8-10.2); CARBON DIOXIDE LEVEL 30 MEQ/L (21-32); CHLORIDE LEVEL 110 MEQ/L (98-107); CREATININE FOR GFR 0.99 MG/DL (0.70-1.30); GLOMERULAR FILTRATION RATE > 60.0 (>49); GLUCOSE, FASTING 127 MG/DL (70-100); MAGNESIUM LEVEL 2.3 MG/DL (1.8-2.4); POTASSIUM SERUM 3.6 MEQ/L (3.5-5.1); SODIUM LEVEL 146 MEQ/L (136-145)
[2021-04-02] MEDS: ALVIMOPAN 12 MG CAPSULE (ENTEREG) PO SCH ×2 (08:43→20:52)
--- NOTE | 2021-04-02 09:28 | REP ---
INDICATION: SBO. COMPARISON: Comparison radiograph March 30, 2021.. TECHNIQUE: KUB. FINDINGS: There is a surgical drain in the right mid abdomen. Surgical yonathan are noted in the left upper quadrant and periumbilical region. The tip of an NG tube is seen in the body of the stomach. Bowel gas pattern is normal. No air-filled dilated small or large bowel loops are seen. IMPRESSION: Bowel-gas pattern is improved postoperatively. <Electronically signed by Francisco J Hoff > 04/02/21 [id number]
--- NOTE | 2021-04-02 10:05 | IPNPDOC ---
Text Note Date of Service The patient was seen on 04/02/21. NOTE Patient looks mildly uncomfortable, maybe anxious. Denies flatus yet. NGT was clamped for 2 hours and he reports more cramping and bloating. NGT output still moderately high. Vs Examination mildly uncomfortable abdomen still moderately distended, tense, quiet. He has a short upper midline incision covered with jose d gauze. The drain comes off the left side and the dressings are saturated. Serous drainage in the tubing. Mild tenderness on palpation impression and plan POD2 lap lysis of adhesion, small bowel resection and anastomosis for small bowel obstruction does not look like he could tolerate clamping/removal of the ngt though the kub today shows a fairly decompressed small bowel and some air in the colon. will continue with ngt to liws. I instructed him to ambulate the hallways today will add percocets for pain control instead of the morphine. Continue with toradol. VS,Fishbone, I+O VS, Fishbone, I+O Laboratory Tests 04/02/21 06:22 Vital Signs Date Time Temp Pulse Resp B/P (MAP) Pulse Ox O2 Delivery O2 Flow Rate FiO2 04/02/21 06:00 98.6 85 20 128/75 (92) 97 Room Air 03/31/21 16:47 10.0 I&O- Last 24 Hours up to 6 AM 04/02/21 06:00 Intake Total 1425 ml Output Total 3025 ml Balance -1600 ml CLAUDIA VOGT MD Apr 02, 2021 10:05
[2021-04-02 11:00] VITALS: BP 122/75
--- NOTE | 2021-04-02 11:20 | IPNPDOC ---
Text Note Date of Service The patient was seen on 04/02/21. NOTE Hospitalist Progress Note Subjective: Still having some discomfort. Apparently they did try to clamp the tube last night, but had bloating and cramping. KUB this morning does show improvement in bowel gas pattern, and physical examination although his bowel sounds are still infrequent, it seems to me he is still they are also improved. Objective: General: Awake, alert, oriented 3. Not in any acute distress. HEENT: Head normocephalic, atraumatic, sclera are nonicteric. Hearing is grossly intact to conversation. Respiratory: Clear to auscultation bilaterally with no wheezes, rales, or rhonchi. Cardiovascular: Regular rate and rhythm, with no rubs, gallops, or murmur. Abdomen: Soft, minimally tender, perhaps mildly distended. Minimal bowel sounds, but more than I heard yesterday. Extremities: 2+ pulses in the radial and dorsalis pedis bilaterally. No evidence of clubbing or cyanosis. Assessment: Small bowel obstruction -Patient was taken to the OR 03/31/2021 for diagnostic laparoscopic procedure and possible lysis of adhesions -Continue with pain control per recommendations from general surgery -It appears that they have also started Alvimopan to help with GI recovery postoperatively -Zofran as needed -He continues to be n.p.o., therefore D5 half-normal saline will be continued. -General surgery is on the case, and their input regarding management is greatly appreciated. Leukocytosis -Showing improvement today, likely secondary to postoperative stress demargination - Continue Zosyn empirically Hypernatremia -Continues to improve, almost normal today. -Continue fluid management as dictated by laboratory values. VS,Fishbone, I+O VS, Fishbone, I+O Laboratory Tests 04/02/21 06:22 Vital Signs Date Time Temp Pulse Resp B/P (MAP) Pulse Ox O2 Delivery O2 Flow Rate FiO2 04/02/21 11:00 101.2 94 16 122/75 (91) 97 Room Air 03/31/21 16:47 10.0 I&O- Last 24 Hours up to 6 AM 04/02/21 06:00 Intake Total 1425 ml Output Total 3025 ml Balance -1600 ml ESPERANZA SUMNER DO Apr 02, 2021 11:20
[2021-04-02] MEDS: KETOROLAC 30 MG/ML 1ML VIAL IV SCH ×2 (11:44→18:37)
[2021-04-02] MEDS ORDERED: ACETAMINOPHEN TAB 650MG DOSE (2X325MG) PO PRN (12:15)
[2021-04-02 14:00] VITALS: BP 124/73
[2021-04-02 18:00] VITALS: BP 127/77
[2021-04-02] MEDS ORDERED: FAT EMULSION IV 250 ML IV SCH (18:00)
[2021-04-02 21:46] VITALS: BP 140/83
[2021-04-03] MEDS: HumaLOG INSULIN (NovoLOG) PER UNIT SC SCH ×4 (00:37→17:13)
[2021-04-03] MEDS: PIPERACILLIN/TAZOBACTAM SOD 3.375 GM in D5W MINI-BAG PLUS 50 ML IV SCH ×4 (00:37→18:30)
[2021-04-03] MEDS: NORCO, ANEXSIA 5/325MG TABLET (HYDROcodone/ACETAMINOPHEN) PO PRN ×2 (00:51→14:17)
[2021-04-03 02:00] VITALS: BP 134/81
[2021-04-03] MEDS: KETOROLAC 30 MG/ML 1ML VIAL IV SCH ×4 (02:28→18:30)
[2021-04-03 06:00] VITALS: BP 139/74
[2021-04-03 06:16] LABS: HEMATOCRIT 32.9 % (42.0-52.0); HEMOGLOBIN 10.6 g/dl (13.5-17.5); MEAN CORPUSCULAR HEMOGLOBIN 30.2 pg (27.0-33.0); MEAN CORPUSCULAR HGB CONC 32.2 g/dl (32.0-36.5); MEAN CORPUSCULAR VOLUME 93.7 fl (80.0-96.0); PLATELET COUNT, AUTOMATED 146 10^3/uL (150-450); RED BLOOD COUNT 3.51 10^6/uL (4.30-6.10)
[2021-04-03 06:39] LABS: BLOOD UREA NITROGEN 20 MG/DL (7-18); CALCIUM LEVEL 7.2 MG/DL (8.8-10.2); CARBON DIOXIDE LEVEL 28 MEQ/L (21-32); CHLORIDE LEVEL 111 MEQ/L (98-107); GLOMERULAR FILTRATION RATE > 60.0 (>49); GLUCOSE, FASTING 129 MG/DL (70-100); MAGNESIUM LEVEL 2.3 MG/DL (1.8-2.4); POTASSIUM SERUM 3.5 MEQ/L (3.5-5.1); SODIUM LEVEL 146 MEQ/L (136-145)
[2021-04-03] MEDS: D5W/0.9% SODIUM CHLORIDE 1,000 ML IV SCH (06:49)
[2021-04-03] MEDS: ALVIMOPAN 12 MG CAPSULE (ENTEREG) PO SCH ×2 (08:14→22:09)
[2021-04-03] MEDS ORDERED: MOM 30ML SUSPENSION UDC PO ONE (09:00)
[2021-04-03] MEDS: AMINO AC/ELECTROLYTE/DEX/CALC 1,000 ML IV SCH ×2 (09:01→23:05)
--- NOTE | 2021-04-03 09:11 | REP ---
INDICATION: Dyspnea. COMPARISON: Comparison chest x-ray 03/30/2021. TECHNIQUE: Portable upright AP chest radiograph. FINDINGS: A nasogastric tube is seen in place entering left upper quadrant as before. There is cephalization of the pulmonary vasculature. No infiltrate is seen. Pleural angles are sharp. There is no evidence of atelectasis. No significant bony abnormality.. IMPRESSION: Mild vascular cephalization. Otherwise negative. No infiltrate seen.. <Electronically signed by Francisco J Hoff > 04/03/21 0943
--- NOTE | 2021-04-03 09:22 | IPNPDOC ---
Text Note Date of Service The patient was seen on 04/03/21. NOTE had one small loose bm yesterday but not regularly passing flatus yet, still feels bloated, denies nausea. looks to be short of breath when talking VS stable I/O NGT 2950 yesterday 450 mLs overnight UO 875/ 250 mLs Exam slight discomfort sob ngt in place lungs decreased bs bilaterally at bases, no wheezing abdomen remains moderately distended, soft, dressings c/d/i, nontender, relatively hypoactive bs no significant extremity edema. impression and plan POD 4 small bowel resection, lysis of adhesion for sbo fluid overload showing some signs of bowel awakening, dont think ready yet for meals, will see if he tolerates clamping the ngt will give lasix decrease fluids in tpn dvt prophylaxis ambulate VS,Fishbone, I+O VS, Fishbone, I+O Laboratory Tests 04/03/21 05:49 Vital Signs Date Time Temp Pulse Resp B/P (MAP) Pulse Ox O2 Delivery O2 Flow Rate FiO2 04/03/21 06:00 98.1 83 20 139/74 (95) 94 Room Air 03/31/21 16:47 10.0 I&O- Last 24 Hours up to 6 AM 04/03/21 06:00 Intake Total 2740 ml Output Total 3675 ml Balance -935 ml CLAUDIA VOGT MD Apr 03, 2021 09:22
[2021-04-03 10:00] VITALS: BP 142/88
[2021-04-03] MEDS: FUROSEMIDE 40MG/4ML VIAL (J1940) IV SCH (10:12)
--- NOTE | 2021-04-03 11:44 | IPNPDOC ---
Subjective Date Seen The patient was seen on 04/03/21. Subjective Chief Complaint/HPI Mr. Henry is a 65 year old male with history of abdominal surgery who is here for SBO. He was taken to the OR on 03/31/21 for lysis of adhesions, small bowel resection, and anastomosis. Patient was seen in the morning. NGT still in place. Denies chest pain, but reports shortness of breath. Ordered for CXR which demonstrated cephalization. Patient was started on IV Lasix. Objective Physical Examination General Exam: Positive: Alert, Cooperative Eye Exam: Negative: Sclera icteric ENT Exam: Positive: Atraumatic Neck Exam: Positive: Supple Chest Exam: Positive: Rhonchi Heart Exam: Positive: Rate Normal, Regular Rhythm Abdomen Exam: Positive: BS Hypoactive, Tenderness Neuro Exam: Positive: Normal Speech Psych Exam: Positive: Mental status NL, Mood NL Assessment /Plan Assessment Mr. Henry is a 65 year old male with history of abdominal surgery who is here for SBO. He was taken to the OR on 03/31/21 for lysis of adhesions, small bowel resection, and anastomosis. General surgery following, recommendations appreciated. Patient still has NGT in place this morning. Otherwise, patient appears to be fluid overloaded secondary to TPN and IVF. IVF discontinued and patient started on IV Lasix. Plan/VTE VTE Prophylaxis Ordered?: Yes Plan 1. Small bowel obstruction -General surgery following, recommendations appreciated -OR on 03/31/21 for lysis of adhesions, small bowel resection, and anastomosis -NGT present this morning -General surgery stated patient on Entereg 2. Fluid overloaded -Secondary to TPN and IVF -IVF discontinued -On IV Lasix 3. Leukocytosis -May be reactive due to surgery -Continue Zosyn 4. Hypernatremia -Hold IVF -If continues to be elevated tomorrow, may need to touch base with nephrology about low sodium TPN 5. DVT ppx -SCD and TEDs Disposition: Pending clinical improvement VS, I&O, 24H, Fishbone Vital Signs/I&O Vital Signs Date Time Temp Pulse Resp B/P (MAP) Pulse Ox O2 Delivery O2 Flow Rate FiO2 04/03/21 10:00 97.7 85 20 142/88 (106) 94 04/03/21 06:00 Room Air 03/31/21 16:47 10.0 I&O- Last 24 Hours up to 6 AM 04/03/21 06:00 Intake Total 2740 ml Output Total 3675 ml Balance -935 ml Laboratory Data 24H LABS Laboratory Tests 2 04/02/21 11:35: Bedside Glucose (Misc Panel) 101 04/02/21 16:31: Bedside Glucose (Misc Panel) 130H 04/03/21 00:11: Bedside Glucose (Misc Panel) 131H 04/03/21 05:49: Nucleated Red Blood Cells % (auto) 0.0, Anion Gap 7L, Glomerular Filtration Rate > 60.0, Calcium Level 7.2L, Magnesium Level 2.3 04/03/21 06:06: Bedside Glucose (Misc Panel) 125H CBC/BMP Laboratory Tests 04/03/21 05:49 REYNOLD MARTÍNEZ DO Apr 03, 2021 11:44
[2021-04-03 14:00] VITALS: BP 142/89
[2021-04-03 18:00] VITALS: BP 141/88
[2021-04-03] MEDS ORDERED: FAT EMULSION IV 250 ML IV SCH (18:00)
[2021-04-03 21:49] VITALS: BP 136/83
[2021-04-04] MEDS: KETOROLAC 30 MG/ML 1ML VIAL IV SCH ×3 (02:27→18:44)
[2021-04-04 02:28] VITALS: BP 138/86
[2021-04-04] MEDS: PIPERACILLIN/TAZOBACTAM SOD 3.375 GM in D5W MINI-BAG PLUS 50 ML IV SCH ×4 (02:28→18:44)
[2021-04-04 06:45] VITALS: BP 120/82
[2021-04-04] MEDS: HumaLOG INSULIN (NovoLOG) PER UNIT SC SCH ×3 (06:57→12:00)
[2021-04-04 07:22] LABS: HEMATOCRIT 31.8 % (42.0-52.0); HEMOGLOBIN 10.3 g/dl (13.5-17.5); MEAN CORPUSCULAR HEMOGLOBIN 30.4 pg (27.0-33.0); MEAN CORPUSCULAR HGB CONC 32.4 g/dl (32.0-36.5); MEAN CORPUSCULAR VOLUME 93.8 fl (80.0-96.0); PLATELET COUNT, AUTOMATED 154 10^3/uL (150-450); RED BLOOD COUNT 3.39 10^6/uL (4.30-6.10); WHITE BLOOD COUNT 11.4 10^3/uL (4.0-10.0)
[2021-04-04 07:54] LABS: BLOOD UREA NITROGEN 20 MG/DL (7-18); CALCIUM LEVEL 7.2 MG/DL (8.8-10.2); CARBON DIOXIDE LEVEL 28 MEQ/L (21-32); CHLORIDE LEVEL 103 MEQ/L (98-107); CREATININE FOR GFR 0.79 MG/DL (0.70-1.30); GLOMERULAR FILTRATION RATE > 60.0 (>49); GLUCOSE, FASTING 112 MG/DL (70-100); POTASSIUM SERUM 3.6 MEQ/L (3.5-5.1); SODIUM LEVEL 137 MEQ/L (136-145)
[2021-04-04] MEDS: ALVIMOPAN 12 MG CAPSULE (ENTEREG) PO SCH ×2 (08:02→20:34)
[2021-04-04] MEDS: ENOXAPARIN 40MG/0.4ML SYRINGE (J1650 PER 10MG) SC SCH (08:03)
[2021-04-04] MEDS: FUROSEMIDE 40MG/4ML VIAL (J1940) IV SCH (08:03)
[2021-04-04] MEDS ORDERED: CEPACOL LOZENGE PO PRN (10:50)
--- NOTE | 2021-04-04 13:58 | IPNPDOC ---
Text Note Date of Service The patient was seen on 04/04/21. NOTE General surgery. Dr. Hall The patient is a 65-year-old male admitted with SBO status post lysis of adhesions, small bowel resection 03/31/[address] Hall. The patient was advanced to clear liquids 04/03 and has been tolerating. Denies nausea or vomiting. Abdominal pain has been controlled. 6 bowel movements recorded yesterday. Temperature 98.2 Heart rate 89, respiratory rate 16, blood pressure 120/82, 93% room air Currently resting in bed, no acute distress S1-S2 regular rate rhythm Lungs with decreased breath sounds at bases, no wheezing. Abdomen still with some distention, soft, dressings are clean/dry/intact, nontender. No guarding or rebound. No edema NG tube 450 mL drainage yesterday. SARA drain 180 mL drainage yesterday. WBC 11.4, 12.0 yesterday. Hemoglobin 10.3 Assessment/plan SBO status post lysis of adhesions, small bowel resection 03/31/[address] Hall. The patient is reviewed and examined as per Dr. Hall. Plan to advance to regular diet. Discontinue TPN IV Zosyn Encourage out of bed and ambulation. DVT prophylaxis. Lovenox. VS,Fishbone, I+O VS, Fishbone, I+O Laboratory Tests 04/04/21 07:06 Vital Signs Date Time Temp Pulse Resp B/P (MAP) Pulse Ox O2 Delivery O2 Flow Rate FiO2 04/04/21 06:45 98.2 89 16 120/82 (95) 93 Room Air 03/31/21 16:47 10.0 I&O- Last 24 Hours up to 6 AM 04/04/21 06:00 Intake Total 2190 ml Output Total 1150 ml Balance 1040 ml Ludivina Nelson Apr 04, 2021 13:58
[2021-04-04 14:00] VITALS: BP 125/83
--- NOTE | 2021-04-04 14:25 | IPNPDOC ---
Subjective Date Seen The patient was seen on 04/04/21. Subjective Chief Complaint/HPI Mr. Henry is a 65 year old male with history of abdominal surgery who is here for SBO. He was taken to the OR on 03/31/21 for lysis of adhesions, small bowel resection, and anastomosis. Yesterday, patient's NGT was removed and he was tried on a clear liquid diet. This morning, he was seen standing and ambulating. He feels better, but still has some shortness of breath. His dyspnea is most likely fluid overload from IVF and TPN. Will give an addition IV Lasix in the afternoon. Otherwise, patient was able to tolerate a clear liquid diet. TPN was stopped by general surgery and diet was advanced Objective Physical Examination General Exam: Positive: Alert, Cooperative Eye Exam: Negative: Sclera icteric ENT Exam: Positive: Atraumatic Neck Exam: Positive: Supple Chest Exam: Positive: Rhonchi Heart Exam: Positive: Rate Normal, Regular Rhythm Abdomen Exam: Positive: Normal bowel sounds, Tenderness Neuro Exam: Positive: Normal Speech Psych Exam: Positive: Mental status NL, Mood NL Assessment /Plan Assessment Mr. Henry is a 65 year old male with history of abdominal surgery who is here for SBO. He was taken to the OR on 03/31/21 for lysis of adhesions, small bowel resection, and anastomosis. General surgery following, recommendations appreciated. Patient tolerated a diet and was advanced as tolerated. Otherwise, patient appears to be fluid overloaded secondary to TPN and IVF. IVF and TPN has been discontinued. Patient on IV Lasix. Plan/VTE VTE Prophylaxis Ordered?: Yes Plan 1. Small bowel obstruction -General surgery following, recommendations appreciated -OR on 03/31/21 for lysis of adhesions, small bowel resection, and anastomosis -NGT removed and patient tolerated a diet 2. Fluid overloaded -Secondary to TPN and IVF -IVF discontinued -On IV Lasix 3. Leukocytosis -May be reactive due to surgery -Continue Zosyn 4. Hypernatremia -Hold IVF -If continues to be elevated tomorrow, may need to touch base with nephrology about low sodium TPN 5. DVT ppx -SCD and TEDs Disposition: Pending clinical improvement VS, I&O, 24H, Fishbone Vital Signs/I&O Vital Signs Date Time Temp Pulse Resp B/P (MAP) Pulse Ox O2 Delivery O2 Flow Rate FiO2 04/04/21 06:45 98.2 89 16 120/82 (95) 93 Room Air 03/31/21 16:47 10.0 I&O- Last 24 Hours up to 6 AM 04/04/21 06:00 Intake Total 2190 ml Output Total 1150 ml Balance 1040 ml Laboratory Data 24H LABS Laboratory Tests 2 04/03/21 17:10: Bedside Glucose (Misc Panel) 93 04/04/21 00:05: Bedside Glucose (Misc Panel) 92 04/04/21 06:52: Bedside Glucose (Misc Panel) 114 04/04/21 07:06: Nucleated Red Blood Cells % (auto) 0.0, Anion Gap 6L, Glomerular Filtration Rate > 60.0, Calcium Level 7.2L CBC/BMP Laboratory Tests 04/04/21 07:06 REYNOLD MARTÍNEZ DO Apr 04, 2021 14:25
[2021-04-04] MEDS ORDERED: FUROSEMIDE 40MG/4ML VIAL (J1940) IV ONE (15:00)
[2021-04-04] MEDS: NORCO, ANEXSIA 5/325MG TABLET (HYDROcodone/ACETAMINOPHEN) PO PRN (23:31)
[2021-04-05] MEDS: PIPERACILLIN/TAZOBACTAM SOD 3.375 GM in D5W MINI-BAG PLUS 50 ML IV SCH ×4 (01:12→18:21)
[2021-04-05] MEDS: KETOROLAC 30 MG/ML 1ML VIAL IV SCH (03:51)
[2021-04-05 06:00] VITALS: BP 122/78
[2021-04-05 06:00] LABS: HEMATOCRIT 34.9 % (42.0-52.0); HEMOGLOBIN 11.4 g/dl (13.5-17.5); MEAN CORPUSCULAR HEMOGLOBIN 30.6 pg (27.0-33.0); MEAN CORPUSCULAR HGB CONC 32.7 g/dl (32.0-36.5); MEAN CORPUSCULAR VOLUME 93.8 fl (80.0-96.0); PLATELET COUNT, AUTOMATED 223 10^3/uL (150-450); RED BLOOD COUNT 3.72 10^6/uL (4.30-6.10); WHITE BLOOD COUNT 17.6 10^3/uL (4.0-10.0)
[2021-04-05 06:29] LABS: BLOOD UREA NITROGEN 17 MG/DL (7-18); CARBON DIOXIDE LEVEL 33 MEQ/L (21-32); CHLORIDE LEVEL 98 MEQ/L (98-107); CREATININE FOR GFR 0.96 MG/DL (0.70-1.30); GLOMERULAR FILTRATION RATE > 60.0 (>49); GLUCOSE, FASTING 92 MG/DL (70-100); POTASSIUM SERUM 3.7 MEQ/L (3.5-5.1); SODIUM LEVEL 136 MEQ/L (136-145)
[2021-04-05] MEDS: ENOXAPARIN 40MG/0.4ML SYRINGE (J1650 PER 10MG) SC SCH (08:23)
[2021-04-05] MEDS: ALVIMOPAN 12 MG CAPSULE (ENTEREG) PO SCH ×2 (08:23→20:58)
[2021-04-05] MEDS: FUROSEMIDE 40MG/4ML VIAL (J1940) IV SCH (08:23)
[2021-04-05] MEDS: GASTROGRAFIN SOLUTION 30ML PO SCH ×2 (09:15→09:58)
[2021-04-05] MEDS ORDERED: ISOVUE-370 76% 100ML VIAL As Ordered ONE (09:59)
--- NOTE | 2021-04-05 10:25 | IPNPDOC ---
Text Note Date of Service The patient was seen on 04/05/21. NOTE General surgery. Dr. Hall The patient is a 65-year-old male admitted with SBO status post lysis of adhesions, small bowel resection 03/31/[address] Hall. The patient was advanced to regular diet and has been tolerating. Denies nausea or vomiting. Reports having some crampy abdominal pain last evening. 7 bowel movements reported yesterday. Temperature 97.9 Heart rate 71, respiratory rate 17, blood pressure 122/78, 97% room air Currently resting in bed, no acute distress S1-S2 regular rate rhythm Lungs with decreased breath sounds at bases, no wheezing. Abdomen still with some distention, soft, nontender, incision with yonathan intact, no erythema or drainage. No guarding or rebound. SARA drain with serous drainage. No edema SARA drain 60 mL yesterday. WBC 17.6 this morning compared with 11.4 yesterday. Hemoglobin 11.4 Assessment/plan SBO status post lysis of adhesions, small bowel resection 03/31/[address] Hall. The patient is reviewed and examined as per Dr. Hall. Continue regular diet. Discontinue SARA drain IV Zosyn Request CT abdomen/pelvis to further evaluate related to leukocytosis noted on labs this morning. Further recommendations pending review of imaging as per Dr Hall Encourage out of bed and ambulation. DVT prophylaxis. Lovenox. VS,Fishbone, I+O VS, Fishbone, I+O Laboratory Tests 04/05/21 05:23 Vital Signs Date Time Temp Pulse Resp B/P (MAP) Pulse Ox O2 Delivery O2 Flow Rate FiO2 04/05/21 06:00 97.9 71 17 122/78 (93) 97 Room Air 03/31/21 16:47 10.0 I&O- Last 24 Hours up to 6 AM 04/05/21 05:59 Intake Total 1890 ml Output Total 3205 ml Balance -1315 ml Ludivina Nelson Apr 05, 2021 10:25
--- NOTE | 2021-04-05 11:46 | REP ---
INDICATION: ? abscess. COMPARISON: 03/27/2021 TECHNIQUE: Oral Gastrografin mixture per our bowel contrast protocol in a bolus 100 mL Isovue 370 scanning through the abdomen and pelvis with both coronal and sagittal reconstructions. FINDINGS: CT abdomen/pelvis: There valve bilateral pleural effusions there is compressive atelectasis adjacent. The right it measures 29 mm on the left 17 mm in thickness at about the level of the GE junction. Remainder of the visualized lung bermudez in the lung bases were clear there is no hiatal hernia. Oral contrast than recent meal seen in filling the stomach. There is no hepatosplenomegaly. Trace amount of ascites adjacent to the liver. No intrahepatic biliary dilatation or hepatic mass. No calcified gallstone with gallbladder well filled there is no splenomegaly or focal splenic lesion. Adrenal glands are grossly unremarkable. Pancreas without mass or ductal dilatation or calcification. There is a left periaortic node about the level of the interpolar lower pole junction of the left kidney it measures 17 mm in short axis. There are other scattered mesenteric nodes ranging up to 9 mm in short axis, most of them smaller. There are periumbilical clips from the recent surgery for bowel obstruction. Large caliber surgical drain via the transabdominal route into the left upper quadrant coursing inferiorly and ending in the right upper quadrant lateral to the right colon. Abdominal aorta without aneurysm or dissection. Kidneys without hydronephrosis but a small extrarenal pelvis noted on both sides. There is perinephric fluid about the right kidney as a new finding. Small bowel loops are contrast filled. Few air-fluid levels are seen in these loops. Pattern suggests an ileus, the distention of the small bowel loops is less than on the preoperative study. I do not see definite evidence of abscess. There is a small amount of intraperitoneal air most likely related to the recent surgery. All of this air is just adjacent to the deep abdominal wall fascia. Stool and liquid with air for seen in colon are also without evidence for obstruction. Some filtration of the mesentery adjacent to the right colon. Trace amount of fluid in the peritoneal gutters. No definite evidence of colitis or diverticulitis. No sign of obstruction. The deep pelvis where there was previously some free fluid now shows an enhancing rim around fluid that is very suggestive of abscess development. This is anterior to the rectum and posterior to the seminal vesicles about 5.9 x 4.1 x 4 cm. Seen on axial images 139 through 151. Same area had pelvic free fluid 10 days ago. No evidence for perforation of the adjacent sigmoid or rectum. The small bowel loops the distal jejunum and ileum do show fluid without definite interloop abscess. Bony abdomen pelvis unchanged from the previous study. IMPRESSION: 1. Development of a deep pelvic abscess anterior to the rectum and posterior to the seminal vesicles in area where there was previously free pelvic ascites on CT 9 days ago. It measures 4.1 x 4.1 x 5.9 cm and has an enhancing rim. Might be reachable through a trans gluteal approach with percutaneous catheter. 2. Large caliber surgical drain via the left upper quadrant ending in the right upper quadrant adjacent to the right colon. 3. Pattern of ileus noted, the small bowel obstructive pattern is clearly reduced. Small amount of the free air related to recent surgery. No definite colitis/diverticulitis or mass. 4. There is some perinephric fluid on the right but both kidneys are symmetrically enhanced. Mild extrarenal pelves without hydroureter or definite hydronephrosis. Some scattered periaortic and mesenteric lymphadenopathy, likely reactive. <Electronically signed by Maurisio Crawford > 04/05/21 3008
[2021-04-05] MEDS: NORCO, ANEXSIA 5/325MG TABLET (HYDROcodone/ACETAMINOPHEN) PO PRN ×2 (12:49→18:21)
--- NOTE | 2021-04-05 13:14 | IPNPDOC ---
Subjective Date Seen The patient was seen on 04/05/21. Subjective Chief Complaint/HPI Mr. Henry is a 65 year old male with history of abdominal surgery who is here for SBO. He was taken to the OR on 03/31/21 for lysis of adhesions, small bowel resection, and anastomosis. This morning, patient was feeling well. Denies chest pain or dyspnea. He was tolerating a diet. His WBC increased. General surgery ordered CT abd/pelvis which demonstrated deep pelvic abscess measuring 4.1 x 4.1 x 5.9 cm with enhancing rim. General surgery ordered for percutaneous drainage of abscess Objective Physical Examination General Exam: Positive: Alert, Cooperative Eye Exam: Negative: Sclera icteric ENT Exam: Positive: Atraumatic Neck Exam: Positive: Supple Chest Exam: Positive: Rhonchi Heart Exam: Positive: Rate Normal, Regular Rhythm Abdomen Exam: Positive: Normal bowel sounds, Tenderness Neuro Exam: Positive: Normal Speech Psych Exam: Positive: Mental status NL, Mood NL Assessment /Plan Assessment Mr. Henry is a 65 year old male with history of abdominal surgery who is here for SBO. He was taken to the OR on 03/31/21 for lysis of adhesions, small bowel resection, and anastomosis. General surgery following, recommendations appreciated. Patient tolerated a diet and was advanced as tolerated. Otherwise, patient appears to be fluid overloaded secondary to TPN and IVF. IVF and TPN has been discontinued. Patient on IV Lasix. Patient WBC was increasing and general surgery ordered CT abd/pelvis. Demonstrated deep pelvic abscess measuring 4.1 x 4.1 x 5.9 cm with enhancing rim. IR to drain abscess. Would appreciate abscess gram stain and cultures. Plan/VTE VTE Prophylaxis Ordered?: Yes Plan 1. Small bowel obstruction -General surgery following, recommendations appreciated -OR on 03/31/21 for lysis of adhesions, small bowel resection, and anastomosis -NGT removed and patient tolerated a diet 2. Pelvic abscess -CT abd/pelvis demonstrated deep pelvic abscess measuring 4.1 x 4.1 x 5.9 cm with enhancing rim -IR to drain -Would appreciated abscess culture and gram stain -Continue Zosyn 3. Fluid overloaded -Secondary to TPN and IVF -IVF discontinued -On IV Lasix 4. Hypernatremia -Resolved with discontinuation of TPN 5. DVT ppx -SCD and TEDs Disposition: Pending IR drainage of abscess and culture/gram stain results VS, I&O, 24H, [facility] Vital Signs/I&O Vital Signs Date Time Temp Pulse Resp B/P (MAP) Pulse Ox O2 Delivery O2 Flow Rate FiO2 04/05/21 12:49 18 04/05/21 06:00 97.9 71 122/78 (93) 97 Room Air 03/31/21 16:47 10.0 I&O- Last 24 Hours up to 6 AM 04/05/21 06:00 Intake Total 1890 ml Output Total 3205 ml Balance -1315 ml Laboratory Data 24H LABS Laboratory Tests 2 04/05/21 05:23: Nucleated Red Blood Cells % (auto) 0.0, Anion Gap 5L, Glomerular Filtration Rate > 60.0, Calcium Level 8.0L CBC/BMP Laboratory Tests 04/05/21 05:23 REYNOLD MARTÍNEZ DO Apr 05, 2021 13:14
[2021-04-05 13:31] LABS: INR 1.07; PROTHROMBIN TIME 14.1 SECONDS (12.5-14.3)
[2021-04-05] MEDS ORDERED: LIDOCAINE 1% MDV 20ML VIAL As Ordered ONE (14:42)
--- NOTE | 2021-04-05 16:39 | REP ---
INDICATION: abscess pelvic. COMPARISON: None. TECHNIQUE: The procedure was performed under the direct supervision of Dr. Hoff. Patient has a history of a deep pelvic abscess seen on a previous CT scan performed earlier today. The risks and benefits of the procedure were explained to the patient and informed consent was obtained. The pelvic abscess was localized using CT guidance. The skin was prepped and draped in a sterile fashion. 10 cc of 1% lidocaine was used as a local anesthetic. Using CT guidance an 8 [place] skater APDL catheter was inserted using trocar technique. 25 cc of zayas colored fluid was withdrawn and sent to the lab for analysis. Catheter was affixed to the skin and a sterile dressing was applied. The catheter was connected to a gravity drainage bag. Estimated blood loss: Less than 1 cc. The patient tolerated the procedure well and there were no immediate complications. After the appropriate amount to monitor convalescence the patient was discharged from the department. FINDINGS: None IMPRESSION: CT-guided pelvic abscess drain. <Electronically signed by Ezequiel España > 04/05/21 1629 <Electronically signed by Francisco J Hoff > 04/05/21 1822
[2021-04-05 22:00] VITALS: BP 122/72
[2021-04-06] MEDS: PIPERACILLIN/TAZOBACTAM SOD 3.375 GM in D5W MINI-BAG PLUS 50 ML IV SCH ×2 (01:06→06:08)
[2021-04-06 06:00] VITALS: BP 118/70
[2021-04-06] MEDS: NORCO, ANEXSIA 5/325MG TABLET (HYDROcodone/ACETAMINOPHEN) PO PRN (06:09)
[2021-04-06 06:20] LABS: HEMATOCRIT 31.9 % (42.0-52.0); HEMOGLOBIN 10.6 g/dl (13.5-17.5); MEAN CORPUSCULAR HEMOGLOBIN 30.4 pg (27.0-33.0); MEAN CORPUSCULAR HGB CONC 33.2 g/dl (32.0-36.5); MEAN CORPUSCULAR VOLUME 91.4 fl (80.0-96.0); PLATELET COUNT, AUTOMATED 217 10^3/uL (150-450); RED BLOOD COUNT 3.49 10^6/uL (4.30-6.10); WHITE BLOOD COUNT 16.9 10^3/uL (4.0-10.0)
[2021-04-06 06:42] LABS: BLOOD UREA NITROGEN 14 MG/DL (7-18); CALCIUM LEVEL 7.5 MG/DL (8.8-10.2); CARBON DIOXIDE LEVEL 28 MEQ/L (21-32); CHLORIDE LEVEL 100 MEQ/L (98-107); GLOMERULAR FILTRATION RATE > 60.0 (>49); GLUCOSE, FASTING 78 MG/DL (70-100); POTASSIUM SERUM 3.6 MEQ/L (3.5-5.1); SODIUM LEVEL 135 MEQ/L (136-145)
[2021-04-06] MEDS ORDERED: CIPROFLOXACIN 500MG TABLET PO ONE (09:00)
[2021-04-06] MEDS: ENOXAPARIN 40MG/0.4ML SYRINGE (J1650 PER 10MG) SC SCH (09:15)
--- NOTE | 2021-04-06 13:37 | IPNPDOC ---
Subjective Date Seen The patient was seen on 04/06/21. Subjective Chief Complaint/HPI Mr. Henry is a 65 year old male with history of abdominal surgery who is here for SBO. He was taken to the OR on 03/31/21 for lysis of adhesions, small bowel resection, and anastomosis. This morning, he denies any chest pain or dyspnea. Drain from abscess drainage in place. Objective Physical Examination General Exam: Positive: Alert, Cooperative Eye Exam: Negative: Sclera icteric ENT Exam: Positive: Atraumatic Neck Exam: Positive: Supple Chest Exam: Positive: Rhonchi Heart Exam: Positive: Rate Normal, Regular Rhythm Abdomen Exam: Positive: Normal bowel sounds, Tenderness Neuro Exam: Positive: Normal Speech Psych Exam: Positive: Mental status NL, Mood NL Assessment /Plan Assessment Mr. Henry is a 65 year old male with history of abdominal surgery who is here for SBO. He was taken to the OR on 03/31/21 for lysis of adhesions, small bowel resection, and anastomosis. General surgery following, recommendations appreciated. Patient tolerated a diet and was advanced as tolerated. Otherwise, patient appears to be fluid overloaded secondary to TPN and IVF. IVF and TPN has been discontinued. Patient on IV Lasix. Patient WBC was increasing and general surgery ordered CT abd/pelvis. Demonstrated deep pelvic abscess measuring 4.1 x 4.1 x 5.9 cm with enhancing rim. IR to drain abscess (performed on 04/05/21). Abscess gram stain demonstrates gram negative rods. Pending culture results. Plan/VTE VTE Prophylaxis Ordered?: Yes Plan 1. Small bowel obstruction -General surgery following, recommendations appreciated -OR on 03/31/21 for lysis of adhesions, small bowel resection, and anastomosis -NGT removed and patient tolerated a diet 2. Pelvic abscess -CT abd/pelvis demonstrated deep pelvic abscess measuring 4.1 x 4.1 x 5.9 cm with enhancing rim -IR drained on 04/05/21 -Abscess gram stain demonstrates gram negative rods. Pending culture -Continue Zosyn 3. Fluid overloaded -Secondary to TPN and IVF -IVF discontinued -On IV Lasix 4. Hypernatremia -Resolved with discontinuation of TPN 5. DVT ppx -SCD and TEDs Disposition: Gram stain positive for gram negative rods. Pending cultures VS, I&O, 24H, Fishbone Vital Signs/I&O Vital Signs Date Time Temp Pulse Resp B/P (MAP) Pulse Ox O2 Delivery O2 Flow Rate FiO2 04/06/21 06:39 18 04/06/21 06:00 99.6 91 118/70 (86) 94 Room Air 03/31/21 16:47 10.0 I&O- Last 24 Hours up to 6 AM 04/06/21 06:00 Intake Total 1940 ml Output Total 1425 ml Balance 515 ml Laboratory Data 24H LABS Laboratory Tests 2 04/06/21 05:22: Nucleated Red Blood Cells % (auto) 0.0, Anion Gap 7L, Glomerular Filtration Rate > 60.0, Calcium Level 7.5L CBC/BMP Laboratory Tests 04/06/21 05:22 Microbiology Microbiology 04/05/21 Gram Stain - Final, Resulted 04/05/21 Abscess Culture, Resulted Pending 04/05/21 Anaerobic Culture, Resulted Pending REYNOLD MARTÍNEZ DO Apr 06, 2021 13:37
[2021-04-06 14:00] VITALS: BP 113/73
[2021-04-06] MEDS: CIPROFLOXACIN 500MG TABLET PO SCH (18:42)
[2021-04-06 22:00] VITALS: BP 113/73
[2021-04-07 05:10] VITALS: BP 113/72
[2021-04-07] MEDS: CIPROFLOXACIN 500MG TABLET PO SCH ×2 (05:11→17:07)
[2021-04-07] MEDS ORDERED: CALCIUM CARBONATE 500 MG CHEW U/D PO PRN (05:55)
[2021-04-07 05:56] LABS: HEMATOCRIT 33.6 % (42.0-52.0); HEMOGLOBIN 10.9 g/dl (13.5-17.5); MEAN CORPUSCULAR HEMOGLOBIN 30.4 pg (27.0-33.0); MEAN CORPUSCULAR HGB CONC 32.4 g/dl (32.0-36.5); MEAN CORPUSCULAR VOLUME 93.9 fl (80.0-96.0); PLATELET COUNT, AUTOMATED 195 10^3/uL (150-450); RED BLOOD COUNT 3.58 10^6/uL (4.30-6.10); WHITE BLOOD COUNT 12.5 10^3/uL (4.0-10.0)
[2021-04-07 06:21] LABS: BLOOD UREA NITROGEN 13 MG/DL (7-18); CALCIUM LEVEL 7.6 MG/DL (8.8-10.2); CARBON DIOXIDE LEVEL 29 MEQ/L (21-32); CHLORIDE LEVEL 102 MEQ/L (98-107); CREATININE FOR GFR 0.73 MG/DL (0.70-1.30); GLOMERULAR FILTRATION RATE > 60.0 (>49); GLUCOSE, FASTING 94 MG/DL (70-100); POTASSIUM SERUM 3.8 MEQ/L (3.5-5.1); SODIUM LEVEL 137 MEQ/L (136-145)
[2021-04-07] MEDS: NORCO, ANEXSIA 5/325MG TABLET (HYDROcodone/ACETAMINOPHEN) PO PRN ×2 (07:23→16:16)
[2021-04-07] MEDS: ENOXAPARIN 40MG/0.4ML SYRINGE (J1650 PER 10MG) SC SCH (08:03)
[2021-04-07] MEDS ORDERED: MORPHINE 2 MG/ML 1ML VIAL (J2270) IV ONE (09:05)
--- NOTE | 2021-04-07 09:08 | REP ---
INDICATION: abd pain, S/P drain placement, r/o hematoma. COMPARISON: CT with contrast & CT-guided percutaneous abscess drainage 04/05/2021 TECHNIQUE: Noncontrast scanning through the abdomen pelvis with coronal and sagittal reconstructions. FINDINGS: CT abdomen: Bilateral pleural effusions are again noted. These are slightly larger on the right unchanged on the left. Compressive atelectatic changes in both lower lung zones noted. Heart the unchanged. No hiatal hernia. Some retained food in the stomach. Liver, spleen, gallbladder pancreas, adrenal glands and kidneys are unchanged. Surgical skin yonathan from laparotomy are again seen. Percutaneous surgical drain has been removed. There is trace stranding in the lateral conal fascia and peritoneal gutters as well as mesenteric edema. Small bowel staple line in the left upper quadrant again seen. Small bowel loops are fluid-filled, mildly distended and have air-fluid levels suggesting ileus but there is also some scattered gas and fluid in the colon. This suggests ileus or partial small bowel obstruction. Lung window review of all CT slices there is no free intraperitoneal air. Trace amounts of subcutaneous air at the catheter removal site and abdominal wall musculature. Few areas of subcutaneous air from subcutaneous injections in the left flank noted. Bones unchanged. Kidneys without hydronephrosis, hydroureter or stone. CT pelvis: Bone windows show no interval change. There is a transgluteal percutaneous pigtail drain anterior to the rectum which has collapsed the abscess cavity located there. There is still some air and trace fluid adjacent to the drain. Peritoneal gutter fluid is noted again. Stranding of the pericolonic fat throughout the distal left colon and proximal sigmoid make it difficult to discern acute inflammatory process in the presence of small amounts of ascites adjacent. No perforation or abscess about the left colon and proximal sigmoid. Bladder without wall thickening, mass or stone. The distal ureters without dilatation or stone. Prostrate enlarged and indenting the bladder base. No other change. IMPRESSION: 1. Pigtail transgluteal pelvic drainage catheter from the right side into the pre rectal space abscess with collapse of the most of that abscess and only trace fluid and a rind around it. 2. Small bowel ileus with the distension air-fluid levels but the some fluid and the gas in colon and rectum. This suggests the ileus or partial bowel obstruction. There is some ascites in small volume in upper abdomen, greater in the peritoneal gutters in the lower abdomen and abutting the margins of the distal left colon and proximal sigmoid. No perforation or abscess. I cannot confirm or exclude any colitis/diverticulitis in this left-sided pelvic location. 3. Interval removal of the large caliber percutaneous left-sided surgical drain. 4. Bilateral pleural effusions and adjacent compressive atelectatic changes as described. <Electronically signed by Maurisio Crawford > 04/07/21 0987
--- NOTE | 2021-04-07 12:25 | IPNPDOC ---
Text Note Date of Service The patient was seen on 04/07/21. NOTE General surgery. Dr. Hall The patient is a 65-year-old male admitted with SBO status post lysis of adhesions, small bowel resection 03/31/[address] Hall. The patient was advanced to regular diet 04/04. This morning, the patient reports increasing pain on the right side, he is status post percutaneous drain placement for abscess 04/05/2021 as per IR. So far he has had a total of 13 mL from the drain. Afebrile Heart rate 71, respiratory rate 18, blood pressure 113/72, 97% room air Currently resting in bed, reports right-sided abdominal pain S1-S2 regular rate rhythm Lungs with decreased breath sounds at bases, no wheezing. Abdomen still with some distention, soft, tenderness with palpation in the right upper and lower quadrant areas, incision with yonathan intact, no erythema or drainage. Scant drainage in the percutaneous drain bag. No edema WBC 12.5 this morning compared with 16.9 yesterday. Hemoglobin 10.9, compared with 10.6 yesterday this is stable. Assessment/plan SBO status post lysis of adhesions, small bowel resection 03/31/[address] 04/05/2021 with abscess, status post percutaneous drain placement 04/05 The patient is reviewed with Dr. Hall this morning. Abscess culture preliminary results indicate pansensitive E. coli. Currently on p.o. Cipro Have requested CT abdomen/pelvis without contrast to further evaluate the patient's complaint of pain, status post drain placement yesterday, rule out hematoma. Dr. Hall to review imaging. DVT prophylaxis. Lovenox. VS,Fishbone, I+O VS, Fishbone, I+O Laboratory Tests 04/07/21 05:31 Vital Signs Date Time Temp Pulse Resp B/P (MAP) Pulse Ox O2 Delivery O2 Flow Rate FiO2 04/07/21 09:30 16 04/07/21 05:10 98.1 71 113/72 (86) 97 04/06/21 22:00 Room Air I&O- Last 24 Hours up to 6 AM 04/07/21 06:00 Intake Total 1960 ml Output Total 670 ml Balance 1290 ml Ludivina Nelson Apr 07, 2021 12:25
[2021-04-07] MEDS ORDERED: BISACODYL 10 MG SUPP PR ONE (13:10)
[2021-04-07] MEDS: ALVIMOPAN 12 MG CAPSULE (ENTEREG) PO SCH ×2 (13:48→22:07)
[2021-04-07] MEDS: SIMETHICONE 80MG CHEW TAB PO SCH ×3 (13:48→22:07)
[2021-04-07] MEDS ORDERED: metroNIDAZOLE 500 MG in IV 1 EA IV SCH (14:20)
--- NOTE | 2021-04-07 14:21 | IPNPDOC ---
Subjective Date Seen The patient was seen on 04/07/21. Subjective Chief Complaint/HPI Mr. Henry is a 65 year old male with history of abdominal surgery who is here for SBO. He was seen in the morning. cook morning, he developed a sharp abdominal pain. Patient went down to radiology for CT abd/pelvis. I saw him when he had just came back. Imaging demonstrated ileus vs partial bowel obstruction. General surgery started patient on bisacodyl suppository, simethicone, and Entereg Objective Physical Examination General Exam: Positive: Alert, Cooperative, Mild Distress Eye Exam: Negative: Sclera icteric ENT Exam: Positive: Atraumatic Neck Exam: Positive: Supple Chest Exam: Positive: Rhonchi Heart Exam: Positive: Rate Normal, Regular Rhythm Abdomen Exam: Positive: Tenderness; Negative: Soft Neuro Exam: Positive: Normal Speech Psych Exam: Positive: Anxiety Assessment /Plan Assessment Mr. Henry is a 65 year old male with history of abdominal surgery who is here for SBO. He was taken to the OR on 03/31/21 for lysis of adhesions, small bowel resection, and anastomosis. General surgery following, recommendations appreciated. Patient tolerated a diet and was advanced as tolerated. Otherwise, patient appears to be fluid overloaded secondary to TPN and IVF. IVF and TPN has been discontinued. Patient on IV Lasix. Patient WBC was increasing and general surgery ordered CT abd/pelvis. Demonstrated deep pelvic abscess measuring 4.1 x 4.1 x 5.9 cm with enhancing rim . IR to drain abscess (performed on 04/05/21). Abscess gram stain demonstrates gram negative rods. Preliminary read demonstrates nunez-sensitive E.coli. Pending final read Plan/VTE VTE Prophylaxis Ordered?: Yes Plan 1. Small bowel obstruction complicated by post op ileus -General surgery following, recommendations appreciated -OR on 03/31/21 for lysis of adhesions, small bowel resection, and anastomosis 2. Pelvic abscess -CT abd/pelvis demonstrated deep pelvic abscess measuring 4.1 x 4.1 x 5.9 cm with enhancing rim -IR drained on 04/05/21 -Abscess gram stain demonstrates gram negative rods. Pending culture -Patient switched to ciprofloxacin. Will add on metronidazole to cover for anaerobes 3. Fluid overloaded -Secondary to TPN and IVF -resolved 4. Hypernatremia -Resolved with discontinuation of TPN 5. DVT ppx -SCD and TEDs Disposition: Pending clinical improvement and final culture results VS, I&O, 24H, Fishbone Vital Signs/I&O Vital Signs Date Time Temp Pulse Resp B/P (MAP) Pulse Ox O2 Delivery O2 Flow Rate FiO2 04/07/21 14:00 97.0 60 18 98 Room Air 04/07/21 05:10 113/72 (86) I&O- Last 24 Hours up to 6 AM 04/07/21 06:00 Intake Total 1960 ml Output Total 670 ml Balance 1290 ml Laboratory Data 24H LABS Laboratory Tests 2 04/07/21 05:31: Nucleated Red Blood Cells % (auto) 0.0, Anion Gap 6L, Glomerular Filtration Rate > 60.0, Calcium Level 7.6L CBC/BMP Laboratory Tests 04/07/21 05:31 Microbiology Microbiology 04/05/21 Gram Stain - Final, Resulted 04/05/21 Abscess Culture - Preliminary, Resulted Escherichia Coli 04/05/21 Anaerobic Culture, Resulted Pending REYNOLD MARTÍNEZ DO Apr 07, 2021 14:21
[2021-04-07] MEDS: metroNIDAZOLE (FLAGYL) 500MG TABLET PO SCH ×2 (14:56→22:07)
[2021-04-07] MEDS ORDERED: KETOROLAC 30 MG/ML 1ML VIAL IV ONE (17:50)
[2021-04-07 22:00] VITALS: BP 116/71
[2021-04-08 05:46] LABS: HEMATOCRIT 31.8 % (42.0-52.0); HEMOGLOBIN 10.2 g/dl (13.5-17.5); MEAN CORPUSCULAR HEMOGLOBIN 30.2 pg (27.0-33.0); MEAN CORPUSCULAR HGB CONC 32.1 g/dl (32.0-36.5); MEAN CORPUSCULAR VOLUME 94.1 fl (80.0-96.0); PLATELET COUNT, AUTOMATED 213 10^3/uL (150-450); RED BLOOD COUNT 3.38 10^6/uL (4.30-6.10); WHITE BLOOD COUNT 9.4 10^3/uL (4.0-10.0)
[2021-04-08] MEDS: metroNIDAZOLE (FLAGYL) 500MG TABLET PO SCH ×2 (05:54→14:27)
[2021-04-08] MEDS: CIPROFLOXACIN 500MG TABLET PO SCH (05:54)
[2021-04-08 05:59] LABS: BLOOD UREA NITROGEN 17 MG/DL (7-18); CALCIUM LEVEL 7.5 MG/DL (8.8-10.2); CARBON DIOXIDE LEVEL 29 MEQ/L (21-32); CHLORIDE LEVEL 105 MEQ/L (98-107); CREATININE FOR GFR 0.66 MG/DL (0.70-1.30); GLOMERULAR FILTRATION RATE > 60.0 (>49); GLUCOSE, FASTING 106 MG/DL (70-100); POTASSIUM SERUM 4.1 MEQ/L (3.5-5.1); SODIUM LEVEL 139 MEQ/L (136-145)
[2021-04-08 06:00] VITALS: BP 130/79
[2021-04-08] MEDS: ENOXAPARIN 40MG/0.4ML SYRINGE (J1650 PER 10MG) SC SCH (08:44)
[2021-04-08] MEDS: ALVIMOPAN 12 MG CAPSULE (ENTEREG) PO SCH (08:44)
[2021-04-08] MEDS: SIMETHICONE 80MG CHEW TAB PO SCH ×2 (08:45→14:27)
[2021-04-08] MEDS ORDERED: BISACODYL 10 MG SUPP PR SCH (09:00)
--- NOTE | 2021-04-08 10:12 | IPN ---
PROGRESS NOTE DATE: 04/08/2021 SUBJECTIVE: The patient's white count has come down nicely to 9.4. His drain is minimal drainage overnight and I anticipate his white count was related to his pelvic abscess. Now, that is on the appropriate antibiotics for this, I anticipate these should continue to improve. His temperature was slightly elevated this morning but overall he is continuing to make some slow but progressive improvements. His major issue has been some right sided rib pain/subcostal pain and overall he has been eating very well but he still has a mild ileus that has been slow to resolve here. He did have a bowel movement yesterday and two the day previously and thus it is just very slow to resolve his ileus issues. He continues with this mildly distended abdomen. He really has not had any nausea, no vomiting. His incisions are clean and dry. No drainage from the incisions. IMPRESSION/PLAN: Patient has slowly resolving ileus. He has not had any progression of nausea or vomiting and he almost completely ate his entire dinner last night and lunch before. At this point, I feel that he actually needs to go a little bit slower with his diet and we discussed slowly eating foods and will give him another suppository. If he has a bowel movement and/or status, then I anticipate he should be able to be discharged to home and then he can follow-up next week, Sunday for reevaluation/yonathan out. I would recommend that he continue on antibiotics as an outpatient for another five to seven days and would recommend giving him some [place] for pain and encouraged him to use some simethicone/suppositories if necessary.
[2021-04-08] MEDS ORDERED: POLY17PO18 PO (12:33)
[2021-04-08] MEDS ORDERED: SIME1CHW5 PO (12:33)
[2021-04-08] MEDS ORDERED: COLA100C5 PO (12:33)
[2021-04-08] MEDS ORDERED: HYDR-3715 PO ×2 (12:33→15:20)
[2021-04-08] MEDS ORDERED: FLAG500T PO (12:33)
[2021-04-08] MEDS ORDERED: LEVO750T13 PO (12:33)
--- NOTE | 2021-04-08 23:31 | DS.PDOC ---
Discharge Summary General Date of Admission Mar 29, 2021 at 11:03 Date of Discharge Apr 08, 2021 Specialist/Consultants Involve General surgery, Dr. Hall and Dr. Nguyen Discharge Summary PROCEDURES PERFORMED DURING STAY: 1. Laparoscopic lysis of adhesions, small bowel repair (03/31/21) 2. CT guided abscess drainage (04/05/21) ADMITTING DIAGNOSES: 1. SBO DISCHARGE DIAGNOSES: 1. SBO 2. Fluid overload 3. Iatrogenic hypernatremia 4. E. coli and Enterobacter intra-abdominal abscess COMPLICATIONS/CHIEF COMPLAINT: Small Bowel Obstruction. HISTORY OF PRESENT ILLNESS: Copied from admitting attending's H&P " Mr. Henry is a 65 year old male with PMHx significant only for abdominal trauma several years ago requiring ex-lap with no reported resection and a small bowel obstruction in who presents to the ED with one day of progressive abdominal discomfort and large amount of emesis this morning. Patient states he was in his normal state of health up until yesterday afternoon when he developed a slight stomach ache. He was able to tolerate a diet last night, however this morning when he woke up, he had an episode of emesis where he brought up all of his food from the night before. He otherwise has no medical complaints. " HOSPITAL COURSE: General surgery was consulted. Patient was tried on conservative therapy with NPO, NGT, and IVF. Patient failed conservative therapy and was taken to the OR on 03/31/21. After surgery, patient had post op ileus. Patient had NGT continued and was on IV antibiotics. Patient was put on TPN and IVF. He became fluid overloaded by that combination and was started on IVF until patient was euvolemic. By 04/05/21, patient was tolerating a diet and having bowel movements, but WBC increased. CT abd/pelvis was obtained and discovered a deep pelvic abscess measuring 4.1 x 4.1 x 5.9 cm. Patient had his abscess drained on 04/05/21. Cultures grew pansensitive E.coli and Enterobacter. Anaerobic culture still pending. Today, patient feels well. He feels ready for home and was subsequently discharged home. DISCHARGE MEDICATIONS: Please see below. ALLERGIES: Please see below. PHYSICAL EXAMINATION ON DISCHARGE: VITAL SIGNS: Please see below. GENERAL: Comfortable, in no apparent distress HEENT: Head normocephalic, atraumatic NECK: Supple CARDIOVASCULAR EXAMINATION: Regular rate and rhythm RESPIRATORY EXAMINATION: Lungs clear to auscultation bilaterally ABDOMINAL EXAMINATION: Soft, normal bowel sounds PSYCHIATRIC EXAMINATION: Normal mood and affect LABORATORY DATA: Please see below. IMAGING: Radiologist interpretation CT abd/pelvis with IV contrast 03/27/21 1. Dilated proximal to mid small bowel with transition zone appearing in the right mid abdomen at the level of the iliac crest, see images [id number]. This represents mild small-bowel obstruction. Beyond this, the small bowel loops have slightly thickened mendez and enhancement of those mendez. Those loops are all fluid-filled but not dilated to the ileocecal valve. The proximal loops show dilatation without air- fluid levels. The most proximal of loops of jejunum do show wall thickening. Mild to moderate ascites in the upper and lower abdomen pelvis respectively. 2. No definite evidence for colitis, diverticulitis stricture or colonic mass. 3. Liver, spleen, gallbladder, pancreas, adrenal glands, kidneys and bladder unremarkable. No hiatal hernia. Otherwise negative. CXR 04/03/21 Mild vascular cephalization. Otherwise negative. No infiltrate seen CT abd/pelvis with contrast 04/05/21 1. Development of a deep pelvic abscess anterior to the rectum and posterior to the seminal vesicles in area where there was previously free pelvic ascites on CT 9 days ago. It measures 4.1 x 4.1 x 5.9 cm and has an enhancing rim. Might be reachable through a trans gluteal approach with percutaneous catheter. 2. Large caliber surgical drain via the left upper quadrant ending in the right upper quadrant adjacent to the right colon. 3. Pattern of ileus noted, the small bowel obstructive pattern is clearly reduced. Small amount of the free air related to recent surgery. No definite colitis/diverticulitis or mass. 4. There is some perinephric fluid on the right but both kidneys are symmetrically enhanced. Mild extrarenal pelves without hydroureter or definite hydronephrosis. Some scattered periaortic and mesenteric lymphadenopathy, likely reactive. PROGNOSIS: Good ACTIVITY: As tolerated. DIET: Low residue diet DISCHARGE PLAN: Home DISPOSITION: 01 Home, Self-Care. DISCHARGE INSTRUCTIONS: 1. Follow up with PCP in 1 week 2. Follow up with General surgery in 1 week 3. Take levofloxacin and metronidazole to completion DISCHARGE CONDITION: Stable. Total time spent on discharge planning, discharge summary, and medication reconciliation: 65 minutes Vital Signs/I&Os Vital Signs Date Time Temp Pulse Resp B/P (MAP) Pulse Ox O2 Delivery O2 Flow Rate FiO2 04/08/21 06:00 99.2 68 21 130/79 (96) 97 Room Air I&O- Last 24 Hours up to 6 AM 04/08/21 06:00 Intake Total 2176 ml Output Total 803 ml Balance 1373 ml Laboratory Data Labs 24H Laboratory Tests 2 04/08/21 05:18: Nucleated Red Blood Cells % (auto) 0.0, Anion Gap 5L, Glomerular Filtration Rate > 60.0, Calcium Level 7.5L CBC/BMP Laboratory Tests 04/08/21 05:18 Microbiology Microbiology 04/05/21 Gram Stain - Final, Resulted 04/05/21 Abscess Culture - Final, Resulted Escherichia Coli Enterobacter Cloacae Complex 04/05/21 Anaerobic Culture, Resulted Pending Discharge Medications Scheduled Docusate Sodium (Colace) 100 Mg Capsule, 100 MG PO BID Levofloxacin (Levofloxacin) 750 Mg Tablet, 750 MG PO DAILY Metronidazole (Flagyl) 500 Mg Tablet, 500 MG PO Q8H Simethicone (Simethicone) 125 Mg Tab.chew, 125 MG PO QID Scheduled PRN Hydrocodone/Acetaminophen (Hydrocodone-Acetamin 5-325 mg) 1 Each Tablet, 1 TAB PO Q4HP PRN for MODERATE PAIN (PS 5-7) Polyethylene Glycol 3350 (Polyethylene Glycol 3350) 17 Gm Powd.pack, 17 GRAM PO DAILYPRN PRN for constipation Allergies Coded Allergies: No Known Allergies (Unverified , 04/30/19) REYNOLD MARTÍNEZ DO Apr 08, 2021 23:31
--- NOTE | 2021-05-03 15:09 | RO ---
OPERATIVE NOTE DATE OF OPERATION: 03/31/2021 PREOPERATIVE DIAGNOSIS: Small bowel obstruction. POSTOPERATIVE DIAGNOSIS: Small bowel obstruction. PROCEDURE: Laparoscopic lysis of adhesions. SURGEON: Roger Hall Jr., MD RESIDENTIAL LEASING MANAGER: ANESTHESIA: General endotracheal anesthesia. ESTIMATED BLOOD LOSS: Minimal. FLUIDS: Crystalloid. BRIEF PROCEDURE SUMMARY: The patient was brought to the operating room and was given general anesthesia. After adequate anesthesia and preoperative antibiotics were given, the patient was prepped and draped in the usual sterile fashion. Next, the patient had a previous surgical incision and thus a left subcostal incision was made with a 15 blade. A Veress needle was placed into the abdominal cavity and insufflated to 15 mm of pressure. A dilating 5 mm trocar was placed and under direct visualization, an epigastric and left lateral 5 mm trocars were placed. Next, there were numerous adhesions that were taken down along the lateral abdomen in the anterior abdominal wall with harmonic scalpel. Eventually I was able to take down adequately these adhesions but they were multiple ones and then once I was able to take down the adhesions up to the anterior abdominal wall, what was present was evidence of some matting of the small bowel both on the right lower quadrant area as well as in the pelvis and on the left lower quadrant area and no evidence of true internal hernia was appreciated at this time but what was noticed was significantly dilated small bowel and proximally, I was able to follow this back down to the mid-lower abdomen but then because of so many adhesions in these areas, I was unable to mobilize this very well. Thus there was a very distended portion of small bowel in the right lower quadrant and I felt that if I could get on the back side of this and see around this area, then I may be able to see what is causing some of the obstruction. Once the bowel was grasped with atraumatic graspers, immediately the bowel almost seemed to scissor and there were some enterotomies made. The bowel decompressed and I was able to aspirate and irrigate this copiously. Once this small bowel was decompressed, actually I was able to see multiple adhesions that were causing this internal hernia/obstruction from adhesions. Once these were taken down, I was able to also see where there was some decompressed small bowel previously that now was receiving some of the fluid from the obstructed component. The area in question had a little bit of a petechial inflammation where there were adhesions going across the small bowel and once I was able to mobilize the small bowel more, I made a small midline incision, brought the small bowel up and repaired the enterotomies in two layers with Vicryl inner layer and outer layer. The area of petechial hemorrhage on the surface of the small bowel was also visualized and revealed no evidence of transmucosal ischemia or significant chronic scarring leading to stricture. Thus, this was returned to the abdominal cavity. A 19 Arnel-Keane drain was left in the bed of the dissection. The midline was closed with #1 Vicryl in a running manner and the abdomen copiously irrigated again until clear. All trocars were removed under direct visualization. Wes[place] were used to approximate the skin. The patient was awakened, extubated, brought to the recovery room awake, alert and hemodynamically stable. Sponge and needle counts were correct x2.
== END 2021-04-08 15:20 | disposition home or self-care (01) | DRG 329 ==
LOC: M ED 11:01 → M ED INP 13:23 → ENRESERV 14:57 → M MS5PR 15:47 → OBSVTOIN 03-29 11:03
PROVIDERS: ADMIT General Practice; ATTEND Internal Medicine
PROC: 0DNU4ZZ Release Omentum, Percutaneous Endoscopic Approach (ICD-10-PCS; 2021-03-31)
PROC: 0DB84ZZ Excision of Small Intestine, Percutaneous Endoscopic Approach (ICD-10-PCS; principal; 2021-03-31 14:00)
PROC: 0W9J30Z Drainage of Pelvic Cavity with Drainage Device, Percutaneous Approach (ICD-10-PCS; 2021-04-05)
DX: K56.50 Intestinal adhesions [bands], unspecified as to partial versus complete obstruction (principal); K65.1 Peritoneal abscess; K91.89 Other postprocedural complications and disorders of digestive system; E87.0 Hyperosmolality and hypernatremia; D72.829 Elevated white blood cell count, unspecified; B96.29 Other Escherichia coli [E. coli] as the cause of diseases classified elsewhere